=== PATIENT | female | born 1980 | race African-American/Black ===

== ENCOUNTER 2016-05-30 22:05 | Inpatient (IN) | payer OTHER ==
[~2016-05-30] VITALS: Ht 172.7 cm; Wt 76.6 kg
[~2016-05-30 22:05] MED LIST: Z.0.NO CURRENT MEDS
[2016-05-30 22:06] VITALS: BP 122/74; PULSE 120; RESP 16; TEMP 99; O2SAT 95
[2016-05-30] MEDS ORDERED: SODIUM CHLORIDE 0.9% FLUSH 5 ML FLUSH IVF PRN (22:45)
[2016-05-30] MEDS ORDERED: methylPREDNISolone SOD SUCC 125 MG/2 ML VIAL IVP ONE (22:45)
[2016-05-30] MEDS: RESP: ALBUTEROL 2.5 MG/3 ML NEB (SCH) INH ×2 (22:55→22:56)
[2016-05-30 23:21] LABS: AUTOMATED NEUTROPHIL # 1.9 TH/MM3 (1.8-7.7); BASOPHIL % 0.4 % (0.0-2.0); EOSINOPHIL % 0.6 % (0.0-4.0); HEMATOCRIT 34.8 % (35.0-46.0); HEMO FLAGS DIFF FINAL; LYMPH % 27.2 % (9.0-44.0); LYMPHOCYTE # 1.1 TH/MM3 (1.0-4.8); MEAN CELL VOLUME 78.6 FL (80.0-100.0); MEAN CORPUSCULAR HGB CONC 33.1 % (32.0-36.0); MONO % 23.6 % (0.0-8.0); NEUT % 48.2 % (16.0-70.0); PLATELET COUNT 128 TH/MM3 (150-450); RED BLOOD COUNT 4.42 MIL/MM3 (4.00-5.30); RED CELL DISTRIBUTION WIDTH 14.3 % (11.6-17.2)
--- NOTE | 2016-05-30 23:32 | RADRPT ---
EXAM DATE/TIME: 05/30/2016 22:39 [facility] COMPARISON: No previous studies available for comparison. INDICATIONS : Shortness of breath, and flu like symptoms. MEDICAL HISTORY : None. SURGICAL HISTORY : None. ENCOUNTER: Initial ACUITY: 1 day PAIN SCORE: 10/10 LOCATION: Bilateral chest FINDINGS: The cardiac silhouette is enlarged in transverse diameter. There is prominence of the central pulmona ry vasculature with indistinct vascular margins compatible with vascular congestion but no evidence o f overt failure. There is no evidence of pneumonia. CONCLUSION: 1. Cardiomegaly and findings of vascular congestion without overt failure. Aba Treviño MD on May 30, 2016 at 23:29 Board Certified Radiologist. This report was verified electronically.
--- NOTE | 2016-05-30 23:32 | PD ---
HPI Chief Complaint: Cold / Flu Symptoms Time Seen by Provider: 22:29 Travel History International Travel<30 days: No Contact w/Intl Traveler<30days: No Traveled to known affect area: No History of Present Illness HPI The patient is 35 years old. She has had cough and shortness of breath for about 3 days or so. In addition she's had nausea vomiting diarrhea. She reports fever and chills. Myalgias are also reported. 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 Dyspnea on exertion. He reported. Patient was started on azithromycin about 3 days ago. No improvement has been observed. Mother notes that at home albuterol treatments helped. The patient has no pulmonary disease however mother does have a nebulizer for her own use. Pt denies CP. PFSH Past Medical History Cancer: No Diabetes: No Diminished Hearing: No Glaucoma: No Hepatitis: No Hiatal Hernia: No Hypertension: No Immunizations Current: No Thyroid Disease: No ?: Unknown LMP: 05/20/2016 : 1 Para: 0 Miscarriage: 1 Past Surgical History Surgical History: No Previous Surgery Abdominal Surgery: No Cardiac Surgery: No Ear Surgery: No Endocrine Surgery: No Eye Surgery: No Genitourinary Surgery: No Gynecologic Surgery: Yes (D&C 2008 S/P MISCARRIAGE) Oral Surgery: No Pacemaker: No Thoracic Surgery: No Social History Alcohol Use: No Tobacco Use: No Substance Use: No Allergies-Medications (Allergen,Severity, Reaction): Coded Allergies: Penicillin (Verified Allergy, Mild, UNKNOWN, 05/30/16) Reported Meds & Prescriptions Reported Meds & Active Scripts Active Reported No Current Meds (Miscellaneous Medication) Misc Review of Systems Except as stated in HPI: all other systems reviewed are Neg Physical Exam Narrative GENERAL: 35-year-old well-developed well-nourished SKIN: Warm and dry. HEAD: Atraumatic. Normocephalic. EYES: Pupils equal and round. No scleral icterus. No injection or drainage. ENT: No nasal bleeding or discharge. Mucous membranes pink and moist. NECK: Trachea midline. No JVD. CARDIOVASCULAR: Tachycardia. Regular. RESPIRATORY no accessory muscle use. Occasional coarse breath sounds. GASTROINTESTINAL: Abdomen soft, non-tender, nondistended. Hepatic and splenic margins not palpable. MUSCULOSKELETAL: No obvious deformities. No clubbing. No cyanosis. No edema. NEUROLOGICAL: Awake and alert. No obvious cranial nerve deficits. Motor grossly within normal limits. Normal speech. PSYCHIATRIC: Appropriate mood and affect; insight and judgment normal. Data Data Last Documented VS Vital Signs Date Time Temp Pulse Resp B/P Pulse Ox O2 Delivery O2 Flow Rate FiO2 05/30/16 22:06 99.0 120 16 122/74 95 Vital signs reviewed Orders Complete Blood Count With Diff (05/30/16 22:37) Basic Metabolic Panel (Bmp) (05/30/16 22:37) Influenzae A/B Antigen (05/30/16 22:37) Iv Access Insert/Monitor (05/30/16 22:37) Ecg Monitoring (05/30/16 22:37) Oximetry (05/30/16 22:37) Oxygen Administration (05/30/16 22:37) Chest, Single Ap (05/30/16 22:37) Sodium Chloride 0.9% Flush (Ns Flush) (05/30/16 22:45) Methylprednisolone So Succ Inj (Solumedr (05/30/16 22:45) Albuterol Neb (Albuterol Neb) (05/30/16 22:45) Electrocardiogram (05/30/16 23:44) B-Type Natriuretic Peptide (05/30/16 23:44) Ckmb (Isoenzyme) Profile (05/30/16 23:44) D-Dimer (05/30/16 23:44) Troponin I (05/30/16 23:44) Ct Thorax/ Chest W Iv Contrast (05/30/16 ) Ed Urine Pregnancytest Poc (05/30/16 23:44) Westergren Sedimentation Rate (05/30/16 23:44) Hepatic Functional Panel (05/30/16 23:46) Iohexol 350 Inj (Omnipaque 350 Inj) (05/31/16 00:32) Furosemide Inj (Lasix Inj) (05/31/16 01:15) Ceftriaxone Inj (Rocephin Inj) (05/31/16 01:15) Azithromycin (Zithromax) (05/31/16 01:15) Blood Culture (05/31/16 01:09) Place In Observation (05/31/16 ) Vital Signs (Adult) Q4H (05/31/16 01:25) Activity Oob With Assistance (05/31/16 01:25) Applications Trainer / Telemetry .CONTINUOUS (05/31/16 01:25) Diet Heart Healthy (05/31/16 Breakfast) Sodium Chloride 0.9% Flush (Ns Flush) (05/31/16 01:30) Sodium Chloride 0.9% Flush (Ns Flush) (05/31/16 09:00) Basic Metabolic Panel (Bmp) (06/01/16 06:00) Complete Blood Count With Diff (06/01/16 06:00) Creatine Kinase (Cpk) (06/01/16 00:00) Creatine Kinase (Cpk) (06/01/16 06:00) Troponin I (06/01/16 00:00) Troponin I (06/01/16 06:00) Electrocardiogram (06/01/16 00:00) Electrocardiogram (06/01/16 06:00) Case Management Consult (05/31/16 01:25) Naloxone Inj (Narcan Inj) (05/31/16 01:30) Echo 2d Comp W/Dopp(Routine) (05/31/16 ) Admit Order (Ed Use Only) (05/31/16 01:29) Furosemide Inj (Lasix Inj) (05/31/16 01:30) Labs Laboratory Tests Test 05/30/16 05/30/16 05/30/16 23:08 23:50 23:59 White Blood Count 4.0 TH/MM3 Red Blood Count 4.42 MIL/MM3 Hemoglobin 11.5 GM/DL Hematocrit 34.8 % Mean Corpuscular Volume 78.6 FL Mean Corpuscular Hemoglobin 26.0 PG Mean Corpuscular Hemoglobin 33.1 % Concent Red Cell Distribution Width 14.3 % Platelet Count 128 TH/MM3 Mean Platelet Volume 8.9 FL Neutrophils (%) (Auto) 48.2 % Lymphocytes (%) (Auto) 27.2 % Monocytes (%) (Auto) 23.6 % Eosinophils (%) (Auto) 0.6 % Basophils (%) (Auto) 0.4 % Neutrophils # (Auto) 1.9 TH/MM3 Lymphocytes # (Auto) 1.1 TH/MM3 Monocytes # (Auto) 0.9 TH/MM3 Eosinophils # (Auto) 0.0 TH/MM3 Basophils # (Auto) 0.0 TH/MM3 CBC Comment DIFF FINAL Differential Comment Sodium Level 137 MEQ/L Potassium Level 3.7 MEQ/L Chloride Level 104 MEQ/L Carbon Dioxide Level 23.9 MEQ/L Anion Gap 9 MEQ/L Blood Urea Nitrogen 7 MG/DL Creatinine 0.58 MG/DL Estimat Glomerular Filtration 142 ML/MIN Rate Random Glucose 119 MG/DL Calcium Level 8.1 MG/DL D-Dimer Quantitative (PE/DVT) 0.98 MG/L FEU Erythrocyte Sedimentation Rate 18 mm/hr Total Bilirubin 0.8 MG/DL Direct Bilirubin 0.4 MG/DL Indirect Bilirubin 0.4 MG/DL Aspartate Amino Transf 32 U/L (AST/SGOT) Alanine Aminotransferase 33 U/L (ALT/SGPT) Alkaline Phosphatase 218 U/L Total Creatine Kinase 55 U/L Troponin I 0.02 NG/ML B-Type Natriuretic Peptide 797 PG/ML Total Protein 6.6 GM/DL Albumin 2.8 GM/DL [facility] Medical Decision Making Medical Screen Exam Complete: Yes Emergency Medical Condition: Yes Medical Record Reviewed: Yes Differential Diagnosis Pneumonia, influenza, electrolyte imbalance Narrative Course CBC & BMP Diagram 05/30/16 23:08 ESR 18 Troponin 0.02 BNP 797 EKG reveals sinus tachycardia with a rate of 129, left axis deviation Last 24 hours Impressions Chest X-Ray 05/30/162236 Signed Impressions: Service Date/Time: Monday, May 30, 2016 22:39 - CONCLUSION: 1. Cardiomegaly and findings of vascular congestion without overt failure. Aba Treviño MD CT shows pulmonary edema and/or pneumonia Patient received Lasix. Rocephin and azithromycin started. Blood cultures drawn. Admission for workup of heart failure and 35-year-old. Discussed with Dr. Bean. Diagnosis Primary Impression: CHF (congestive heart failure) Qualified Code: I50.9 - Congestive heart failure, unspecified congestive heart failure chronicity, unspecified congestive heart failure type Additional Impressions: Pulmonary edema Qualified Code: J81.0 - Acute pulmonary edema Pneumonia Qualified Code: J18.9 - Pneumonia due to infectious organism, unspecified laterality, unspecified part of lung Admitting Information Admitting Physician Requests: Admit Derik Godinez MD May 30, 2016 23:32
[2016-05-30 23:40] LABS: BICARBONATE 23.9 MEQ/L (21.0-32.0); POTASSIUM 3.7 MEQ/L (3.5-5.1)
[2016-05-31] MEDS ORDERED: IOHEXOL 350 MG/ML 10 ML VIAL (for RAD DIAG) IV ONE (00:32)
[2016-05-31 00:48] LABS: INDIRECT BILIRUBIN 0.4 MG/DL (0.0-0.8); TOTAL BILIRUBIN ADULT 0.8 MG/DL (0.2-1.0)
--- NOTE | 2016-05-31 01:02 | RADRPT ---
EXAM DATE/TIME: 05/31/2016 00:30 [facility] COMPARISON: No previous studies available for comparison. INDICATIONS : Short of breath. IV CONTRAST: 70 cc Omnipaque 350 (iohexol) IV RADIATION DOSE: 4.50 CTDIvol (mGy) MEDICAL HISTORY : None SURGICAL HISTORY : None. ENCOUNTER: Initial ACUITY: 1 day PAIN SCALE: 0/10 LOCATION: chest TECHNIQUE: Volumetric scanning of the chest was performed. Using automated exposure control and adjustment of the mA and/or kV according to patient size, radiation dose was kept as low as reasonab ly achievable to obtain optimal diagnostic quality images. FINDINGS: There is patchy alveolar disease bilaterally compatible with edema or pneumonia. This is much more pr ominent on the right than on the left. No pleural effusions are identified. No pulmonary nodules are identified. Examination of the mediastinum demonstrates no abnormally enlarged lymph nodes by CT criteria. No axi llary or hilar abnormalities are identified. Coronary artery calcifications are not present. The visu alized upper abdomen demonstrates no abnormality. The cardiac silhouette is enlarged in transverse di ameter. CONCLUSION: Diffuse alveolar disease on the right characteristics of edema or pneumonia Aba Treviño MD on May 31, 2016 at 0:58 Board Certified Radiologist. This report was verified electronically.
[2016-05-31] MEDS ORDERED: cefTRIAXone INJ 1,000 MG in SODIUM CHLORIDE 0.9% INJ 100 ML IV ONE (01:15)
[2016-05-31] MEDS ORDERED: AZITHROMYCIN 250 MG TAB PO ONE (01:15)
[2016-05-31] MEDS ORDERED: FUROSEMIDE 20 MG/2 ML VIAL IV PUSH ONE ×2 (01:15→01:30)
[2016-05-31] MEDS ORDERED: SODIUM CHLORIDE 0.9% FLUSH 5 ML FLUSH FLUSH PRN (01:30)
[2016-05-31] MEDS ORDERED: NALOXONE HCL 0.4 MG/ML AMP IV PRN (01:30)
[2016-05-31 02:57] VITALS: BP 138/77; PULSE 114; RESP 18; O2SAT 97
--- NOTE | 2016-05-31 03:57 | HHI.HP ---
HPI Service [facility] Primary Care Physician Unknown Admission Diagnosis CHF, Pulm Edema, PNA Diagnoses: Chief Complaint: cough, N/V/D Travel History International Travel<30 Days: No Contact w/Intl Traveler <30 Da: No Traveled to Known Affected Are: No History of Present Illness This is a pleasant 35-year-old Malian female whose with a past medical history of obesity. Patient denies prior medical history. Patient's mother who is at bedside reports concerns of sleep apnea as they used to live in the same house and she reports that she would notice her daughter having rapid breathing followed by periods of not breathing throughout the night. Patient reports approximally 2 weeks ago she had a cold she thought was possibly the flu was treated and outpatient center and given cough suppressant which did not seem to help. Patient reports she was seen at urgent care center was given Z-Dave and told to take over the counter Robitussin again this is not help therefore she proceeded to the emergency department for further evaluation and treatment. Patient reports that since Wednesday she has had nausea vomiting and frequent diarrhea. Patient reports that she has more than 5-6 loose bowel movements per day she reports the bowel movements are orange/green in color she has not noticed any abnormal odor. Patient reports that for the past 2 weeks she's had cough productive of green/yellow phlegm, which seems to be getting worse. Thye cough is associated with midsternal chest tightness/pain. Chest pain does not seem to be related to exertion and there is no radiation of the pain. Patient denies shortness of breath. Patient reports thtat she has lost about 90 lbs over the last 1 year. This weight loss was intentional with exercise and healthy eating. Review of Systems Except as stated in HPI: all other systems reviewed are Neg Past Family Social History Past Medical History denies prior medical history Past Surgical History D&C after miscarriage Reported Medications Currently on day three of Z dave Allergies: Coded Allergies: Penicillin (Verified Allergy, Mild, UNKNOWN, 05/30/16) Active Ordered Medications Current Medications Medications (Trade) Dose Ordered Sig/Katie Route Start Time Stop Time Status Last Admin (NS Flush) 2 ml UNSCH PRN FLUSH 05/31/16 01:30 (NS Flush) 2 ml BID FLUSH 05/31/16 09:00 (Narcan Inj) 0.4 mg UNSCH PRN IV 05/31/16 01:30 Family History Mother positive for CAD first dx at 50 Social History works as a high school social science teacher denies ETOH use, tobacco use or illicit drug use Physical Exam Vital Signs Vital Signs Date Time Temp Pulse Resp B/P Pulse Ox O2 Delivery O2 Flow Rate FiO2 05/31/16 02:57 114 18 138/77 97 Room Air 05/30/16 22:06 99.0 120 16 122/74 95 Physical Exam GENERAL: This is a well-nourished, well-developed patient, tachycardic at rest SKIN: No rashes, ecchymoses or lesions. Cool and dry. HEAD: Atraumatic. Normocephalic. No temporal or scalp tenderness. EYES:Extraocular motions intact. No scleral icterus. No injection or drainage. CARDIOVASCULAR: Regular rate and rhythm without murmurs, gallops, or rubs. RESPIRATORY: Clear to auscultation. Breath sounds equal bilaterally. No wheezes , rales, or rhonchi. GASTROINTESTINAL: Abdomen soft, non-tender, nondistended. No hepato-splenomegaly , or palpable masses. No guarding. MUSCULOSKELETAL: Extremities without clubbing, cyanosis, or edema. No joint tenderness, effusion, or edema noted. No calf tenderness. Negative Homans sign bilaterally. NEUROLOGICAL: Awake and alert. No focal deficits noted. Motor and sensory grossly within normal limits. Five out of 5 muscle strength in all muscle groups. Normal speech. Laboratory Laboratory Tests Test 05/30/16 05/30/16 05/30/16 23:08 23:50 23:59 White Blood Count 4.0 Red Blood Count 4.42 Hemoglobin 11.5 Hematocrit 34.8 Mean Corpuscular Volume 78.6 Mean Corpuscular Hemoglobin 26.0 Mean Corpuscular Hemoglobin 33.1 Concent Red Cell Distribution Width 14.3 Platelet Count 128 Mean Platelet Volume 8.9 Neutrophils (%) (Auto) 48.2 Lymphocytes (%) (Auto) 27.2 Monocytes (%) (Auto) 23.6 Eosinophils (%) (Auto) 0.6 Basophils (%) (Auto) 0.4 Neutrophils # (Auto) 1.9 Lymphocytes # (Auto) 1.1 Monocytes # (Auto) 0.9 Eosinophils # (Auto) 0.0 Basophils # (Auto) 0.0 CBC Comment DIFF FINAL Differential Comment Sodium Level 137 Potassium Level 3.7 Chloride Level 104 Carbon Dioxide Level 23.9 Anion Gap 9 Blood Urea Nitrogen 7 Creatinine 0.58 Estimat Glomerular Filtration 142 Rate Random Glucose 119 Calcium Level 8.1 D-Dimer Quantitative (PE/DVT) 0.98 Erythrocyte Sedimentation Rate 18 Total Bilirubin 0.8 Direct Bilirubin 0.4 Indirect Bilirubin 0.4 Aspartate Amino Transf 32 (AST/SGOT) Alanine Aminotransferase 33 (ALT/SGPT) Alkaline Phosphatase 218 Total Creatine Kinase 55 Troponin I 0.02 B-Type Natriuretic Peptide 797 Total Protein 6.6 Albumin 2.8 Date/Time Procedure Status Source Growth 05/31/16 01:55 Aerobic Blood Culture Received Blood Peripheral Pending 05/31/16 01:55 Anaerobic Blood Culture Received Blood Peripheral Pending 05/30/16 23:08 Influenza Types A,B Antigen (LORETO) - Final Complete Nasal Aspirate NEGATIVE FOR FLU A AND B ANTIGEN.... Result Diagram: 05/30/16230705/30/162307 Imaging Last Impressions Chest X-Ray 05/30/162236 Signed Impressions: Service Date/Time: Monday, May 30, 2016 22:39 - CONCLUSION: 1. Cardiomegaly and findings of vascular congestion without overt failure. Aba Treviño MD Assessment and Plan Assessment and Plan This is a pleasant 35-year-old Malian female whose with a past medical history of obesity. Patient denies prior medical history. 2 weeks of cough now productive of yellow/green phlegm, N/V/D New onset CHF Cardiomegaly CXR reviewed by myself as well as Dr. Bean reveals: Cardiomegaly and findings of vascular congestion without overt failure BNP 797 Patient received Lasix 20 mg IV given in emergency department Lasix 20 mg IV daily with potassium 10 meq Echocardiogram ordered and pending Serial troponin and serial EKGs Cardiology consultation Pneumonia- failed outpatient therapy Productive cough Patient received Rocephin and azithromycin in emergency department Patient was on azithromycin by mouth as an outpatient with no improvement Will start Levaquin 750 mg IV daily Methylprednisone 125 mg given IV 1 in emergency department DuoNeb scheduled and when necessary CT of the chest reviewed by myself as well as Dr. Bean reveals diffuse alveolar disease on the right consistent with edema or pneumonia D dimmer elevated at 0.[address] with IV contrast 05/30/2016 unable to do CTA to rule out PE at this time clinical suspicion of PE is low- patient is ambulatory and there is no s/s DVT- will hold off on VQ scan at this time If PE becomes more of a concern possible CTA to rule out PE at a later date Possible sleep apnea Consult pulmonology Questionable history of thyroid dx check TSH and free T4 DVT prophylaxis with Lovenox Case discussed with the ER provider and RN as well as patient and mother who is at bedside Written by Joanna Astorga, acting as scribe for Dr. Bean on 05/31/16 at 04: 11. The documentation accurately reflects the work performed [id number] by me on at [id number] Joanna Astorga May 31, 2016 03:57 Rose Bean MD May 31, 2016 07:06
[2016-05-31 04:10] VITALS: BP 136/85; PULSE 107; RESP 16; TEMP 97.5; O2SAT 99
[2016-05-31] MEDS ORDERED: RESP: ALBUTEROL 2.5 MG/IPRATROPIUM 0.5 MG NEB (PRN) NEB (04:15)
[2016-05-31] MEDS: ENOXAPARIN SODIUM 40 MG/0.4 ML SYRINGE SQ SCH (05:41)
[2016-05-31] MEDS: LEVOFLOXACIN 750 MG PREMIX INJ 150 ML IV SCH (05:41)
[2016-05-31 07:20] LABS: FREE T4 GREATER THAN 8.00 NG/DL (0.76-1.46)
[2016-05-31] MEDS: RESP: ALBUTEROL 2.5 MG/IPRATROPIUM 0.5 MG NEB (SCH) NEB ×3 (07:40→20:40)
[2016-05-31 07:43] VITALS: BP 119/73; PULSE 108; RESP 16; TEMP 97.2; O2SAT 97
[2016-05-31] MEDS: POTASSIUM CHLORIDE 10 MEQ CAP PO SCH (07:57)
[2016-05-31] MEDS ORDERED: FUROSEMIDE 20 MG/2 ML VIAL IV PUSH SCH (09:00)
[2016-05-31] MEDS: SODIUM CHLORIDE 0.9% FLUSH 5 ML FLUSH FLUSH SCH ×2 (09:00→21:12)
[2016-05-31 11:24] VITALS: BP 124/73; PULSE 109; RESP 16; TEMP 97.7; O2SAT 99
--- NOTE | 2016-05-31 14:27 | EKG ---
Date Performed: 05/30/2016 Time Performed: 23:58:03 PTAGE: 35 years EKG: SINUS TACHYCARDIA BORDERLINE LEFT AXIS DEVIATION NONSPECIFIC ST & T-WAVE ABNORMALITY ABNORM AL RHYTHM ECG NO PREVIOUS TRACING DOCTOR: Farhan Murray Interpretating Date/Time 05/31/2016 14:48:52
[2016-05-31 15:54] VITALS: BP 130/74; PULSE 109; RESP 16; TEMP 98.2; O2SAT 98
--- NOTE | 2016-05-31 16:01 | MB ---
cc: JONI BOX M.D. DATE OF CONSULTATION: 05/31/2016. REASON FOR CONSULTATION: Possible heart failure. HISTORY OF PRESENT ILLNESS: Mrs. Poole is a 35-year-old -[place] female with past history of morbid obesity. She has lost 90 pounds in the past year by exercise and eating better. She was having a cough around three weeks ago. The primary doctor gave her some cough medication with codeine. She is improved. She continued the same cough and went to the urgent care. They gave her an antibiotic and back again with coughing and it was getting worse. The mother decided to bring her to the emergency room where she was evaluated and subsequently admitted. Since hospitalization, she has continued to improve. I was consulted for further evaluation. There was suspicion also of heart failure. The chart was reviewed. The patient was evaluated. ALLERGIES: PENICILLIN. SOCIAL HISTORY: Negative for smoking and drinking. FAMILY HISTORY: The mother had coronary bypass grafting in the mid to late 50s. MEDICATIONS AT HOME: She was basically on a Z-Dave. MEDICATIONS IN THE HOSPITAL: Currently in the hospital she is on: 1. Rocephin. 2. Levaquin. 3. Albuterol inhaler. 4. Zithromax. 5. Lasix IV was given. 6. Methylprednisone was also given. REVIEW OF SYSTEMS: She refers feeling better. No chest pain or chest discomfort. No vomiting. No fever. PHYSICAL EXAMINATION: GENERAL: Alert, fully oriented. VITAL SIGNS: Blood pressure 124/73, pulse 109, respiratory rate 20. LUNGS: Ventilated. CARDIOVASCULAR: S1 and S2. No gallop. No murmur. ABDOMEN: Abdomen soft, no mass. EXTREMITIES: No edema. EKGS: Electrocardiogram indicates sinus tachycardia, rate was around 120 beats per minute to 230 beats per minute. No significant S-T changes. LABORATORY DATA: Hemoglobin 11.5, white blood cells 4.0. Potassium 3.7, creatinine is 0.58. BNP around 797. TSH is 0.05. ASSESSMENT AND RECOMMENDATIONS: Mrs. Poole continues to improve. She is on an antibiotic. There was no previous history of heart failure. Most of her shortness of breath may be most likely due to pneumonia. I discussed the case extensively with her. A 2-D echo was requested but is not available yet. At this point, I am going to discontinue the IV Lasix. I am going to wait for the echocardiogram report. Also, her TSH is very low and the free T4 is high. She may need an endocrinology evaluation. I will monitor her during her hospitalization. MD PAYTON Quarles/LORY /3:33 PM /3:53 PM
[2016-05-31 20:45] VITALS: BP 117/73; PULSE 105; RESP 16; TEMP 97.8; O2SAT 99
[2016-05-31] MEDS: METHIMAZOLE 5 MG TAB PO SCH (21:12)
[2016-06-01 00:50] VITALS: BP 112/68; PULSE 112; RESP 20; TEMP 96.6; O2SAT 99
[2016-06-01 01:27] LABS: CREATINE KINASE 39 U/L (26-192)
[2016-06-01 04:34] VITALS: BP 106/69; PULSE 108; RESP 20; TEMP 96.2; O2SAT 100
[2016-06-01] MEDS: ENOXAPARIN SODIUM 40 MG/0.4 ML SYRINGE SQ SCH (05:34)
[2016-06-01] MEDS: LEVOFLOXACIN 750 MG PREMIX INJ 150 ML IV SCH (05:34)
[2016-06-01 07:18] LABS: AUTOMATED NEUTROPHIL # 1.5 TH/MM3 (1.8-7.7); BASOPHIL % 0.3 % (0.0-2.0); EOSINOPHIL % 0.1 % (0.0-4.0); HEMATOCRIT 33.6 % (35.0-46.0); HEMO FLAGS DIFF FINAL; LYMPH % 49.3 % (9.0-44.0); LYMPHOCYTE # 2.3 TH/MM3 (1.0-4.8); MEAN CELL VOLUME 78.7 FL (80.0-100.0); MEAN CORPUSCULAR HEMOGLOBIN 26.2 PG (27.0-34.0); MEAN CORPUSCULAR HGB CONC 33.3 % (32.0-36.0); MONO % 17.9 % (0.0-8.0); NEUT % 32.4 % (16.0-70.0); PLATELET COUNT 129 TH/MM3 (150-450); RED BLOOD COUNT 4.27 MIL/MM3 (4.00-5.30); RED CELL DISTRIBUTION WIDTH 14.3 % (11.6-17.2); WHITE BLOOD COUNT 4.6 TH/MM3 (4.0-11.0)
[2016-06-01 07:42] LABS: ANION GAP 8 MEQ/L (5-15); BLOOD UREA NITROGEN 13 MG/DL (7-18); CHLORIDE 107 MEQ/L (98-107); GLOMERULAR FILTRATION RATE 168 ML/MIN (>89); POTASSIUM 3.7 MEQ/L (3.5-5.1); SODIUM (NA) 141 MEQ/L (136-145)
[2016-06-01 07:49] LABS: CREATINE KINASE 29 U/L (26-192)
[2016-06-01 08:00] VITALS: BP 100/71; PULSE 113; RESP 19; TEMP 96.5; O2SAT 98
[2016-06-01] MEDS: RESP: ALBUTEROL 2.5 MG/IPRATROPIUM 0.5 MG NEB (SCH) NEB ×3 (08:08→20:32)
[2016-06-01] MEDS: POTASSIUM CHLORIDE 10 MEQ CAP PO SCH (09:51)
[2016-06-01] MEDS: METHIMAZOLE 5 MG TAB PO SCH ×2 (09:52→21:00)
[2016-06-01] MEDS ORDERED: INFLUENZA VIRUS VACCINE (QUADRIVALENT) 0.5 ML SYR IM ONE (10:00)
[2016-06-01] MEDS: SODIUM CHLORIDE 0.9% FLUSH 5 ML FLUSH FLUSH SCH ×2 (10:04→21:00)
[2016-06-01 12:00] VITALS: BP 92/70; PULSE 111; RESP 18; TEMP 96.8; O2SAT 99
--- NOTE | 2016-06-01 14:18 | EKG ---
Date Performed: 06/01/2016 Time Performed: 05:27:38 PTAGE: 35 years EKG: Sinus tachycardia Leftward axis Possible left ventricular hypertrophy Lateral T wave change s are probably due to ventricular hypertrophy Low QRS voltages in precordial leads Abnormal ECG NO PREVIOUS TRACING DOCTOR: David Flores Interpretating Date/Time 06/01/2016 14:15:23
--- NOTE | 2016-06-01 14:23 | EKG ---
Date Performed: 05/31/2016 Time Performed: 23:51:36 PTAGE: 35 years EKG: Sinus tachycardia with frequent PVCs Leftward axis QRS changes V3/V4 may be due to LVH but cannot rule out anterior infarct Abnormal ECG NO PREVIOUS TRACING DOCTOR: David Flores Interpretating Date/Time 06/01/2016 14:19:01
--- NOTE | 2016-06-01 14:34 | HHI.PR ---
Subjective Remarks Patient in bed. Says she feels improved today. No palpitations, sob, n/v/d/c. Objective Vitals Vital Signs Date Time Temp Pulse Resp B/P Pulse Ox O2 Delivery O2 Flow Rate FiO2 06/01/16 12:00 96.8 111 18 92/70 99 06/01/16 08:00 96.5 113 19 100/71 98 06/01/16 04:34 96.2 108 20 106/69 100 06/01/16 00:50 96.6 112 20 112/68 99 05/31/16 20:45 97.8 105 16 117/73 99 05/31/16 15:54 98.2 109 16 130/74 98 I/O 05/31/16 05/31/16 05/31/16 06/01/16 06/01/16 06/01/16 07:00 15:00 23:00 07:00 15:00 23:00 Intake Total 240 ml 960 ml 240 ml Balance 240 ml 960 ml 240 ml Intake Oral 240 ml 960 ml 240 ml # Voids 2 4 1 1 # Bowel Movements 4 1 Result Diagram: 06/01/16 0617 06/01/16 0617 Imaging Last Impressions Chest X-Ray 05/30/167 Signed Impressions: Service Date/Time: Monday, May 30, 2016 22:39 - CONCLUSION: 1. Cardiomegaly and findings of vascular congestion without overt failure. Aba Treviño MD Chest CT 05/30/16 0000 Signed Impressions: Service Date/Time: Tuesday, May 31, 2016 00:30 - CONCLUSION: Diffuse alveolar disease on the right characteristics of edema or pneumonia Aba Treviño MD Objective Remarks GENERAL: This is a well-nourished, well-developed patient, tachycardic at rest SKIN: No rashes, ecchymoses or lesions. Cool and dry. HEAD: Atraumatic. Normocephalic. No temporal or scalp tenderness. EYES:Extraocular motions intact. No scleral icterus. No injection or drainage. CARDIOVASCULAR: Regular rate and rhythm without murmurs, gallops, or rubs. RESPIRATORY: Clear to auscultation. Breath sounds equal bilaterally. No wheezes , rales, or rhonchi. GASTROINTESTINAL: Abdomen soft, non-tender, nondistended. No hepato-splenomegaly , or palpable masses. No guarding. MUSCULOSKELETAL: Extremities without clubbing, cyanosis, or edema. No joint tenderness, effusion, or edema noted. No calf tenderness. Negative Homans sign bilaterally. NEUROLOGICAL: Awake and alert. No focal deficits noted. Motor and sensory grossly within normal limits. Five out of 5 muscle strength in all muscle groups. Normal speech. A/P Assessment and Plan This is a pleasant 35-year-old [place] female whose with a past medical history of obesity. Patient denies prior medical history. 2 weeks of cough now productive of yellow/green phlegm, N/V/D New onset CHF Cardiomegaly CXR reviewed by myself as well as Dr. Bean reveals: Cardiomegaly and findings of vascular congestion without overt failure. Repeat CXR improved. BNP 797 Patient received Lasix 20 mg IV given in emergency department Lasix 20 mg IV daily with potassium 10 meq Echocardiogram ordered and pending Serial troponin and serial EKGs Cardiology consultation Pneumonia- failed outpatient therapy Productive cough Patient received Rocephin and azithromycin in emergency department Patient was on azithromycin by mouth as an outpatient with no improvement Will start Levaquin 750 mg IV daily Methylprednisone 125 mg given IV 1 in emergency department DuoNeb scheduled and when necessary CT of the chest reviewed by myself as well as Dr. Bean reveals diffuse alveolar disease on the right consistent with edema or pneumonia D dimmer elevated at 0.[address] with IV contrast 05/30/2016 unable to do CTA to rule out PE at this time clinical suspicion of PE is low- patient is ambulatory and there is no s/s DVT- will hold off on VQ scan at this time If PE becomes more of a concern possible CTA to rule out PE at a later date Possible sleep apnea Consult pulmonology History of thyroid dx. check TSH is low and free T4 is elevated patient with hyperthyroidism. Start methimazole 5 mg po bid. Patient to follow up as OP with endocrinology DVT prophylaxis with Lovenox Amy Walter MD Jun 01, 2016 14:34
[2016-06-01 16:00] VITALS: BP 119/75; PULSE 120; RESP 19; TEMP 97; O2SAT 99
[2016-06-01 20:00] VITALS: BP 115/80; PULSE 116; RESP 16; TEMP 96.4; O2SAT 99
--- NOTE | 2016-06-01 23:01 | HHI.PR ---
Subjective Remarks Doing ok Objective Vital Signs Date Time Temp Pulse Resp B/P Pulse Ox O2 Delivery O2 Flow Rate FiO2 06/01/16 20:00 96.4 116 16 115/80 99 06/01/16 16:00 97.0 120 19 119/75 99 06/01/16 12:00 96.8 111 18 92/70 99 06/01/16 08:00 96.5 113 19 100/71 98 06/01/16 04:34 96.2 108 20 106/69 100 06/01/16 00:50 96.6 112 20 112/68 99 I/O 05/31/16 05/31/16 05/31/16 06/01/16 06/01/16 06/01/16 07:00 15:00 23:00 07:00 15:00 23:00 Intake Total 240 ml 960 ml 240 ml 840 ml Balance 240 ml 960 ml 240 ml 840 ml Intake Oral 240 ml 960 ml 240 ml 840 ml # Voids 2 4 1 1 4 # Bowel Movements 4 1 2 Result Diagram: 06/01/1661606/01/1617 Imaging Alert, oriented, pleasant Lungs: ventilated Heart: S1, S2 tachycardia Abdomen: soft, no mass Ext: no edema Last Impressions Chest X-Ray 05/30/167 Signed Impressions: Service Date/Time: Monday, May 30, 2016 22:39 - CONCLUSION: 1. Cardiomegaly and findings of vascular congestion without overt failure. Aba Treviño MD Chest CT 05/30/16 0000 Signed Impressions: Service Date/Time: Tuesday, May 31, 2016 00:30 - CONCLUSION: Diffuse alveolar disease on the right characteristics of edema or pneumonia Aba Treviño MD Current Medications Medications (Trade) Dose Ordered Sig/Katie Route Start Time Stop Time Status Last Admin (NS Flush) 2 ml UNSCH PRN FLUSH 05/31/16 01:30 (NS Flush) 2 ml BID FLUSH 05/31/16 09:00 06/01/16 21:00 Naloxone HCl 0.4 mg 0.4 mg UNSCH PRN IV 05/31/16 01:30 (Levaquin 750 Mg Premix Inj) 150 ml @ 100 mls/hr Q24H IV 05/31/16 06:00 06/01/16 05:34 (KCl) 10 meq DAILY PO 05/31/16 09:00 06/01/16 09:51 (Lovenox Inj) 40 mg Q24H SQ 05/31/16 05:00 06/01/16 05:34 (Tapazole) 5 mg Q12HR PO 05/31/16 21:00 06/01/16 21:00 Assessment and Plan Problem List: (1) CHF (congestive heart failure) Status: Acute Plan: Possible CHF. Echo report not available. Will continue with current management Meds will be reevaluated in AM (2) Pulmonary edema Status: Acute Plan: Resolved (3) Pneumonia Status: Acute Plan: On antibiotic Problem Qualifiers (1) CHF (congestive heart failure): Qualified Code: I50.9 - Congestive heart failure, unspecified congestive heart failure chronicity, unspecified congestive heart failure type (2) Pulmonary edema: Qualified Code: J81.0 - Acute pulmonary edema (3) Pneumonia: Qualified Code: J18.9 - Pneumonia due to infectious organism, unspecified laterality, unspecified part of lung Roya Nguyen MD Jun 01, 2016 23:01
[2016-06-02] VITALS (8 sets, daily range): BP systolic 98–110; BP diastolic 67–81; PULSE 94–113; RESP 16–22; TEMP 96.5–98.9; O2SAT 96–100
[2016-06-02] MEDS: ENOXAPARIN SODIUM 40 MG/0.4 ML SYRINGE SQ SCH (05:08)
[2016-06-02] MEDS: LEVOFLOXACIN 750 MG PREMIX INJ 150 ML IV SCH (05:08)
[2016-06-02] MEDS: METHIMAZOLE 5 MG TAB PO SCH ×2 (08:24→21:29)
[2016-06-02] MEDS: RESP: ALBUTEROL 2.5 MG/IPRATROPIUM 0.5 MG NEB (SCH) NEB ×3 (08:24→21:02)
[2016-06-02] MEDS: POTASSIUM CHLORIDE 10 MEQ CAP PO SCH (08:25)
[2016-06-02] MEDS: SODIUM CHLORIDE 0.9% FLUSH 5 ML FLUSH FLUSH SCH (08:27)
--- NOTE | 2016-06-02 13:33 | HHI.PR ---
Subjective Remarks Patient in nad. Says she feels much better today. No palpitations. No n/v/d/c. Objective Vitals Vital Signs Date Time Temp Pulse Resp B/P Pulse Ox O2 Delivery O2 Flow Rate FiO2 06/02/16 08:00 100 06/02/16 08:00 100 Room Air 06/02/16 08:00 97.6 100 16 103/69 100 06/02/16 04:00 Room Air 06/02/16 04:00 96.5 94 16 102/69 100 06/02/16 01:22 107 06/02/16 00:00 Room Air 06/02/16 00:00 96.5 113 17 98/81 96 06/01/16 20:00 96.4 116 16 115/80 99 06/01/16 20:00 116 06/01/16 20:00 Room Air 06/01/16 16:00 97.0 120 19 119/75 99 I/O 06/01/16 06/01/16 06/01/16 06/02/16 06/02/16 06/02/16 07:00 15:00 23:00 07:00 15:00 23:00 Intake Total 840 ml 240 ml Balance 840 ml 240 ml Intake Oral 840 ml 240 ml # Voids 1 4 1 # Bowel Movements 1 2 0 Result Diagram: 06/01/1661606/01/16616 Imaging Last Impressions Chest X-Ray 05/30/162236 Signed Impressions: Service Date/Time: Monday, May 30, 2016 22:39 - CONCLUSION: 1. Cardiomegaly and findings of vascular congestion without overt failure. Aba Treviño MD Chest CT 05/30/16 0000 Signed Impressions: Service Date/Time: Tuesday, May 31, 2016 00:30 - CONCLUSION: Diffuse alveolar disease on the right characteristics of edema or pneumonia Aba Treviño MD Objective Remarks GENERAL: This is a well-nourished, well-developed patient, tachycardic at rest SKIN: No rashes, ecchymoses or lesions. Cool and dry. HEAD: Atraumatic. Normocephalic. No temporal or scalp tenderness. EYES:Extraocular motions intact. No scleral icterus. No injection or drainage. CARDIOVASCULAR: Regular rate and rhythm without murmurs, gallops, or rubs. RESPIRATORY: Clear to auscultation. Breath sounds equal bilaterally. No wheezes , rales, or rhonchi. GASTROINTESTINAL: Abdomen soft, non-tender, nondistended. No hepato-splenomegaly , or palpable masses. No guarding. MUSCULOSKELETAL: Extremities without clubbing, cyanosis, or edema. No joint tenderness, effusion, or edema noted. No calf tenderness. Negative Homans sign bilaterally. NEUROLOGICAL: Awake and alert. No focal deficits noted. Motor and sensory grossly within normal limits. Five out of 5 muscle strength in all muscle groups. Normal speech. A/P Assessment and Plan This is a pleasant 35-year-old [place] female whose with a past medical history of obesity. Patient denies prior medical history. 2 weeks of cough now productive of yellow/green phlegm, N/V/D New onset CHF Cardiomegaly CXR reviewed by myself as well as Dr. Bean reveals: Cardiomegaly and findings of vascular congestion without overt failure. Repeat CXR improved. BNP 797 Patient received Lasix 20 mg IV given in emergency department Lasix 20 mg IV daily with potassium 10 meq Echocardiogram ordered and pending Serial troponin negative, serial EKGs no ischemic changes Cardiology consultation, seen by Dr Nguyen appreciate recommendations. Pneumonia- failed outpatient therapy Productive cough Patient received Rocephin and azithromycin in emergency department Patient was on azithromycin by mouth as an outpatient with no improvement Will start Levaquin 750 mg IV daily Methylprednisone 125 mg given IV 1 in emergency department DuoNeb scheduled and when necessary CT of the chest reviewed by myself as well as Dr. Bean reveals diffuse alveolar disease on the right consistent with edema or pneumonia D dimmer elevated at 0.[address] with IV contrast 05/30/2016 unable to do CTA to rule out PE at this time clinical suspicion of PE is low- patient is ambulatory and there is no s/s DVT- will hold off on VQ scan at this time If PE becomes more of a concern possible CTA to rule out PE at a later date Possible sleep apnea Consult pulmonology History of thyroid dx. TSH is low and free T4 is elevated patient with hyperthyroidism. Start methimazole 5 mg po bid. Patient to follow up as OP with endocrinology. DVT prophylaxis with Lovenox Improving. DC when improved and cleared by consultants. Amy Walter MD Jun 02, 2016 13:33
--- NOTE | 2016-06-02 14:09 | RADRPT ---
EXAM DATE/TIME: 06/02/2016 13:44 [facility] COMPARISON: CT THORAX W CONTRAST, May 31, 2016, 0:30. CHEST SINGLE AP, May 30, 2016, 22:39. INDICATIONS : Shortness of Breath MEDICAL HISTORY : None. SURGICAL HISTORY : None. ENCOUNTER: Subsequent ACUITY: 4 - 6 days PAIN SCORE: 0/10 LOCATION: Bilateral chest FINDINGS: A single view of the chest demonstrates the lungs to be symmetrically aerated without evidence of mas s, infiltrate or effusion. Heart enlarged. The cardiomediastinal contours are unremarkable. Osseous structures are intact. CONCLUSION: Cardiomegaly with clear lungs. Javier Henderson MD on June 02, 2016 at 14:07 Board Certified Radiologist. This report was verified electronically.
--- NOTE | 2016-06-02 14:29 | EC ---
Study Study Date:06/01/2016 STUDY CONCLUSIONS SUMMARY - Left ventricle: The cavity size was severely dilated. Wall thickness was normal. Systolic function was severely reduced. The estimated ejection fraction was in the range of 25% to 30%. Diffuse hypokinesis. - Mitral valve: Severe regurgitation. - Tricuspid valve: Moderate-severe regurgitation. - Pulmonary arteries: PA peak pressure: 57mm Hg (S). If LV function is below 40, please consider prescribing an ACEI or ARB or document rationale for non-use. PROCEDURE DATA STUDY STATUS: Elective. Procedure: Transthoracic echocardiography. Image quality was good. Scanning was performed from the parasternal, apical, and subcostal acoustic windows. Study completion: The patient tolerated the procedure well. Transthoracic echocardiography. M-mode, complete 2D, complete spectral Doppler, and color Doppler. Patient status: Inpatient. CARDIAC ANATOMY LEFT VENTRICLE: The cavity size was severely dilated. Wall thickness was normal. Systolic function was severely reduced. The estimated ejection fraction was in the range of 25% to 30%. Diffuse hypokinesis. AORTIC VALVE: Trileaflet; normal thickness leaflets. Doppler: Transvalvular velocity was within the normal range. There was no stenosis. Trace to mild regurgitation. AORTA: Aortic root: The aortic root was normal in size. MITRAL VALVE: Structurally normal valve. Doppler: Transvalvular velocity was within the normal range. There was no evidence for stenosis. Severe regurgitation. LEFT ATRIUM: The atrium was normal in size. RIGHT VENTRICLE: The cavity size was normal. Wall thickness was normal. PULMONIC VALVE: Doppler: Transvalvular velocity was within the normal range. There was no evidence for stenosis. No regurgitation. TRICUSPID VALVE: Structurally normal valve. Doppler: Transvalvular velocity was within the normal range. Moderate-severe regurgitation. PULMONARY ARTERY: The main pulmonary artery was normal-sized. Systolic pressure was within the normal range. RIGHT ATRIUM: The atrium was normal in size. PERICARDIUM: There was no pericardial effusion. SYSTEMIC VEINS: Inferior vena cava: The vessel was normal in size. BASIC MEASUREMENTS ADULT Normal Left ventricle LV internal dimension, ED, chordal level, *57.7 mm 43-52 PLAX LV internal dimension, ES, chordal level, *48 mm 23-38 PLAX Fractional shortening, chordal level, PLAX *17 % >29 LV posterior wall thickness, ED 8.16 mm IVS/LVPW ratio, ED 1.19 <1.3 Ventricular septum Septal thickness, ED 9.71 mm Aortic valve Leaflet separation 21 mm 15-26 Left atrium Anterior-posterior dimension 42 mm Right ventricle RV internal dimension, ED, PLAX 28.7 mm 19-38 BASIC MEASUREMENTS ADULT Normal Aortic valve Leaflet separation 21 mm 15-26 Aorta Root diameter, ED 29 mm 20-37 Left atrium Anterior-posterior dimension, ES *50 mm 19-40 LA/aortic root ratio 1.72 DOPPLER MEASUREMENTS ADULT Normal Main pulmonary artery Pressure, S *57 mm Hg =30 Mitral valve Maximal regurgitant velocity 575 cm/s Tricuspid valve Regurgitant peak velocity 262 cm/s Peak RV-RA gradient, S 27 mm Hg Maximal regurgitant velocity 262 cm/s Systemic veins Estimated CVP 20 mm Hg Right ventricle RV pressure, S *57 mm Hg <30 LEGEND: Mean values are shown as u=mean value. Asterisk (*) reed values outside specified normal range. Prepared and signed by David Flores [id number]
[2016-06-02 15:11] LABS: POTASSIUM 3.8 MEQ/L (3.5-5.1)
[2016-06-02] MEDS ORDERED: IOHEXOL 350 MG/ML 100 ML BTL (for Cath Lab) OTHER ONE (15:25)
[2016-06-02 16:44] LABS: BETA HCG QUANT LESS THAN 1 MIU/ML (0-5)
[2016-06-02] MEDS ORDERED: VERAPAMIL HCL 5 MG/2 ML VIAL ONE (17:11)
[2016-06-02] MEDS ORDERED: NITROGLYCERIN INJ 5 ML ONE (17:11)
[2016-06-02] MEDS ORDERED: HEPARIN-NS/PF INJ 500 ML ONE (17:11)
[2016-06-02] MEDS ORDERED: MIDAZOLAM HCL 2 MG/2 ML VIAL ONE (17:11)
[2016-06-02] MEDS ORDERED: HEPARIN SODIUM - IV 10,000 UNITS/10 ML VIAL ONE (17:12)
[2016-06-02] MEDS ORDERED: MISC INFORMATION XX ONE (18:15)
[2016-06-02] MEDS ORDERED: SODIUM CHLORIDE 0.9% FLUSH 5 ML FLUSH IVF PRN (18:15)
[2016-06-02] MEDS ORDERED: ONDANSETRON HCL 4 MG/2 ML VIAL IV PRN (18:15)
[2016-06-02] MEDS ORDERED: ATROPINE SULFATE 1 MG/ML VIAL IV PRN (18:15)
--- NOTE | 2016-06-02 20:08 | MA ---
cc: CHERIE WILSON DATE 06/02/2016 DATE OF 1980 PROCEDURES PERFORMED 1. Left heart catheterization. 2. Selective right and left coronary angiography. 3. Left ventriculogram. APPROACH Right transradial. DESCRIPTION OF PROCEDURE Consent signed. The patient was brought into the cardiac garage laborer in a fasting state. Using 1% lidocaine for local anesthesia and micropuncture kit, a 6-Upper Sorbian sheath was inserted into the right radial artery. Antispasmodic cocktail given. Then selective right and left coronary angiography was performed with a JR-4 and a JL-3.5. Angiography was taken in multiple views. Then an angled pigtail was advanced over the wire into the left ventricle, followed by hemodynamic recordings, ventriculogram and pullback. The patient tolerated the procedure well without complications. ESTIMATED BLOOD LOSS Less than 30 cc. TOTAL CONTRAST Used 75 cc. The right radial access site was closed with a TR band. ANGIOGRAPHIC RESULTS Left ventricle. The left ventricular pressure was 99/12 with an LVEDP of 24. The aortic pressure was 96/71 with a mean of 83. The left ventricle looks big, has global hypokineses and estimated ejection fraction of 25-30%. CORONARIES 1. Left main is patent with nonobstructive coronary artery disease. 2. LAD is a transapical vessel with nonobstructive coronary artery disease and DIANE III flow. 3. Left circumflex is patent with DIANE III flow, giving off three small OMs which are also patent with DIANE III flow. 4. Ramus. Patent. It bifurcates. DIANE III flow; nonobstructive coronary artery disease. 5. The right coronary artery is a dominant vessel, has nonobstructive coronary artery disease. DIANE III flow. CONCLUSION 1. Nonischemic cardiomyopathy. 2. Severe LV systolic dysfunction. 3. Elevated LVEDP. 4. Moderate mitral regurgitation +3. RECOMMENDATIONS Continue aggressive medical management. Guidelines directed therapy for heart failure. The patient should be on beta-blockers, LUIS inhibitors as tolerated by blood pressure and diuretics for symptom relief. Case discussed with Dr. Nguyen. MD NIMA Guerrero/DYLON /6:00 PM /7:53 PM CAROLINE
--- NOTE | 2016-06-02 21:08 | MB ---
cc: CHERIE WILSON DATE OF CONSULTATION 06/02/16 1980 REASON FOR CONSULTATION New-onset left ventricular dysfunction/severe mitral regurgitation HISTORY OF PRESENT ILLNESS A 35-year-old female with past medical history significant for morbid obesity, has been losing weight intentionally with exercise and diet, who presented to the emergency department for evaluation of shortness of breath with minimal exertion and PND. She was found to be in heart failure. Echocardiogram done revealed severe LV systolic dysfunction with an EF of 30% as well as severe mitral regurgitation. Interventional cardiology has been consulted for left heart catheterization to assess coronary anatomy. Currently, the patient reports feeling better. She seems to be compensated from heart failure with IV diuresis that she has been getting in the hospital. She denies chest pain, shortness of breath, palpitations, syncope, lightheadedness, chest trauma, recent travels. She does report having a cold for the last two weeks as well as another viral illness in March. She also denies any recent pregnancies. PAST MEDICAL HISTORY 1. Morbid obesity. 2. Hyperthyroidism. ALLERGIES PENICILLIN SOCIAL HISTORY Denies smoking, drinking or illicit drug use. FAMILY HISTORY Mother had a coronary bypass in her 50s. MEDICATIONS Home medications Z-Dave. In the hospital reviewed. REVIEW OF SYSTEMS Negative except for what is mentioned in HPI. PHYSICAL EXAMINATION VITAL SIGNS: Temperature 97, respiratory rate 22, heart rate 103, blood pressure 110/70, O2 sat 100% on room air. GENERAL: She is awake, alert and oriented times three in no acute distress. NECK: No JVD or carotid bruits. HEART: Regular rate and rhythm. There is a 2/6 systolic ejection murmur more radiated to the axilla. LUNGS: Clear to auscultation bilaterally. No rhonchi, wheezes or rales. ABDOMEN: Soft, nontender, nondistended. Positive bowel sounds. EXTREMITIES: No cyanosis or edema. LABORATORY DATA CBC - hemoglobin 11, hematocrit 33, platelet count 129, Chemistries - sodium 138, potassium 3.8, BUN nine, creatinine 0.69, troponins less than 0.02 x3. BNP 797 and ACG less than one. TSH less than 0.005. Free T4 greater than eight. IMAGING STUDIES CT chest - Pulmonary edema. CARDIOLOGY STUDIES Echocardiogram - EF 25-30% with severe mitral regurgitation and moderate to severe tricuspid regurgitation. There is diffuse hypokinesis of the left ventricle and severe dilation. ASSESSMENT/PLAN A 35-year-old female with new onset heart failure found to have severe LV systolic dysfunction with severe MR and TR on echocardiography. Consulted for left heart cath/ischemic workup. Risks, benefits of left heart cath including but not limited to bleeding, infection, acute renal failure, stroke, IL, emergent bypass surgery, neurovascular trauma, stroke and have been explained to the patient. The patient understands risks and she is willing to proceed. RECOMMENDATIONS 1. Keep n.p.o. Scheduled left heart cath today. 2. Continue aggressive medical management for heart failure. Thank you for the opportunity to take part in the care of this patient. Further therapy to be determined. MD NIMA Guerrero/ /6:06 PM /8:55 PM CAROLINE
[2016-06-02] MEDS: SODIUM CHLORIDE 0.9% FLUSH 5 ML FLUSH IVF SCH (21:29)
[2016-06-03] VITALS: BP 102/63; PULSE 95; RESP 16; TEMP 96.4; O2SAT 97
[2016-06-03 03:43] VITALS: PULSE 84
[2016-06-03 04:00] VITALS: BP 97/65; PULSE 89; RESP 16; TEMP 97.6; O2SAT 95
[2016-06-03] MEDS: LEVOFLOXACIN 750 MG PREMIX INJ 150 ML IV SCH (05:27)
[2016-06-03] MEDS: POTASSIUM CHLORIDE 10 MEQ CAP PO SCH (07:37)
[2016-06-03] MEDS: METHIMAZOLE 5 MG TAB PO SCH (07:39)
[2016-06-03] MEDS: SODIUM CHLORIDE 0.9% FLUSH 5 ML FLUSH IVF SCH (07:40)
[2016-06-03 08:00] VITALS: BP 98/69; PULSE 99; RESP 18; TEMP 96; O2SAT 98
--- NOTE | 2016-06-03 08:47 | PD.CARD.PN ---
Subjective Subjective Remarks Feeling better Objective Medications Current Medications Medications (Trade) Dose Ordered Sig/Katie Route Start Time Stop Time Status Last Admin Naloxone HCl 0.4 mg 0.4 mg UNSCH PRN IV 05/31/16 01:30 (Levaquin 750 Mg Premix Inj) 150 ml @ 100 mls/hr Q24H IV 05/31/16 06:00 06/03/16 05:27 (KCl) 10 meq DAILY PO 05/31/16 09:00 06/03/16 07:37 (Tapazole) 5 mg Q12HR PO 05/31/16 21:00 06/03/16 07:39 (NS Flush) 2 ml BID IVF 06/02/16 21:00 06/03/16 07:40 (NS Flush) 2 ml UNSCH PRN IVF 06/02/16 18:15 (Atropine Inj) 0.5 mg UNSCH PRN IV 06/02/16 18:15 (Zofran Inj) 4 mg Q4H PRN IV 06/02/16 18:15 Vital Signs / I&O Vital Signs Date Time Temp Pulse Resp B/P Pulse Ox O2 Delivery O2 Flow Rate FiO2 06/03/16 08:00 96.0 99 18 98/69 98 06/03/16 04:00 97.6 89 16 97/65 95 06/03/16 03:43 84 06/03/16 00:00 96.4 95 16 102/63 97 06/02/16 21:44 Room Air 06/02/16 21:11 98.9 107 20 108/70 100 06/02/16 16:37 97.0 103 22 110/70 100 06/02/16 15:15 107 06/02/16 12:00 96.7 107 16 102/67 96 I/O 06/02/16 06/02/16 06/02/16 06/03/16 06/03/16 06/03/16 07:00 15:00 23:00 07:00 15:00 23:00 Intake Total 240 ml 480 ml 240 ml 240 ml 146 ml Balance 240 ml 480 ml 240 ml 240 ml 146 ml Intake Oral 240 ml 480 ml 240 ml 240 ml IV Total 146 ml # Voids 1 3 1 1 # Bowel Movements 0 0 0 0 1 Physical Exam GENERAL: Well-nourished, well-developed patient. SKIN: Warm and dry. HEAD: Normocephalic. EYES: No scleral icterus. No injection or drainage. NECK: Supple, trachea midline. No JVD or lymphadenopathy. CARDIOVASCULAR: Regular rate and rhythm with 2/6 LATHA and S3 gallop. RESPIRATORY: Breath sounds equal bilaterally. No accessory muscle use. GASTROINTESTINAL: Abdomen soft, non-tender, nondistended. EXTREMITIES: No cyanosis, or edema. NEUROLOGICAL: Awake, alert, and oriented x 3. Non-focal. Laboratory Laboratory Tests Test 06/02/16 14:23 Sodium Level 138 MEQ/L Potassium Level 3.8 MEQ/L Chloride Level 105 MEQ/L Carbon Dioxide Level 26.0 MEQ/L Anion Gap 7 MEQ/L Blood Urea Nitrogen 9 MG/DL Creatinine 0.62 MG/DL Estimat Glomerular Filtration 131 ML/MIN Rate Random Glucose 145 MG/DL Calcium Level 7.8 MG/DL B-Type Natriuretic Peptide 296 PG/ML Human Chorionic Gonadotropin, LESS THAN 1 Quant MIU/ML Imaging Last Impressions Chest X-Ray 06/02/16 0000 Signed Impressions: Service Date/Time: Thursday, June 02, 2016 13:44 - CONCLUSION: Cardiomegaly with clear lungs. Javier Henderson MD Chest CT 05/30/16 0000 Signed Impressions: Service Date/Time: Tuesday, May 31, 2016 00:30 - CONCLUSION: Diffuse alveolar disease on the right characteristics of edema or pneumonia Aba Treviño MD Assessment and Plan Problem List: (1) CHF (congestive heart failure) Assessment and Plan: EF 25% by cath, lying flat today on RA, no SOB. Coreg 3.125 mg BID and Entresto 24/26 mg BID initiated with BP hold parameters as pt. is low normotensive. (2) Pneumonia Assessment and Plan: Improving on Levaquin (3) Mitral regurgitation Assessment and Plan: 3+ MR per cath. Coreg and Entresto initiated per my d/w Dr. Nguyen. Assessment and Plan D/W pt., Dr. Nguyen. Problem Qualifiers (1) CHF (congestive heart failure): Qualified Code: I50.20 - Systolic congestive heart failure, unspecified congestive heart failure chronicity (2) Pneumonia: Qualified Code: J18.9 - Pneumonia due to infectious organism, unspecified laterality, unspecified part of lung Mere Pan Jun 03, 2016 08:47
[2016-06-03 09:00] VITALS: PULSE 99
[2016-06-03] MEDS ORDERED: SACUBITRIL/VALSARTAN 24 MG-26 MG TAB PO SCH (09:00)
[2016-06-03] MEDS ORDERED: CARVEDILOL 3.125 MG TAB PO SCH (09:00)
[2016-06-03] MEDS: RESP: ALBUTEROL 2.5 MG/IPRATROPIUM 0.5 MG NEB (SCH) NEB ×2 (09:04→12:21)
[2016-06-03] MEDS ORDERED: SACU1TAB PO (10:52)
[2016-06-03] MEDS ORDERED: ASPI81CH CHEW (10:52)
[2016-06-03] MEDS ORDERED: METH5 PO (10:52)
[2016-06-03] MEDS ORDERED: CARV3.125 PO (10:52)
[2016-06-03] MEDS ORDERED: SPIR25 PO (10:52)
--- NOTE | 2016-06-03 10:52 | HHI.DS ---
Discharge Summary Admission Date May 31, 2016 at 01:31 Discharge Date: Jun 03, 2016 Admitting Diagnosis CHF, Pulm Edema, PNA (1) CHF (congestive heart failure) ICD Code: I50.9 Diagnosis: Principal (2) Mitral regurgitation ICD Code: I34.0 Diagnosis: Principal (3) Pulmonary edema ICD Code: J81.1 Diagnosis: Principal (4) Pneumonia ICD Code: J18.9 Diagnosis: Secondary (5) Hyperthyroidism ICD Code: E05.90 Diagnosis: Principal Procedures 2d ECHO Brief History - From Admission This is a pleasant 35-year-old Ben[place] female whose with a past medical history of obesity. Patient denies prior medical history. Patient's mother who is at bedside reports concerns of sleep apnea as they used to live in the same house and she reports that she would notice her daughter having rapid breathing followed by periods of not breathing throughout the night. Patient reports approximally 2 weeks ago she had a cold she thought was possibly the flu was treated and outpatient center and given cough suppressant which did not seem to help. Patient reports she was seen at urgent care center was given Z-Dave and told to take over the counter Robitussin again this is not help therefore she proceeded to the emergency department for further evaluation and treatment. Patient reports that since Wednesday she has had nausea vomiting and frequent diarrhea. Patient reports that she has more than 5-6 loose bowel movements per day she reports the bowel movements are orange/green in color she has not noticed any abnormal odor. Patient reports that for the past 2 weeks she's had cough productive of green/yellow phlegm, which seems to be getting worse. Thye cough is associated with midsternal chest tightness/pain. Chest pain does not seem to be related to exertion and there is no radiation of the pain. Patient denies shortness of breath. Patient reports thtat she has lost about 90 lbs over the last 1 year. This weight loss was intentional with exercise and healthy eating. CBC/BMP: 06/01/16 0617 06/02/16 1423 Significant Findings Laboratory Tests Test 06/01/16 06/01/16 06/02/16 00:12 06:17 14:23 Troponin I LESS THAN 0.02 LESS THAN 0.02 NG/ML NG/ML (0.02-0.05) (0.02-0.05) Hemoglobin 11.2 GM/DL (11.6-15.3) Hematocrit 33.6 % (35.0-46.0) Mean Corpuscular Volume 78.7 FL (80.0-100.0) Mean Corpuscular Hemoglobin 26.2 PG (27.0-34.0) Platelet Count 129 TH/MM3 (150-450) Lymphocytes (%) (Auto) 49.3 % (9.0-44.0) Monocytes (%) (Auto) 17.9 % (0.0-8.0) Neutrophils # (Auto) 1.5 TH/MM3 (1.8-7.7) Random Glucose 126 MG/DL 145 MG/DL (74-106) (74-106) Calcium Level 8.3 MG/DL 7.8 MG/DL (8.5-10.1) (8.5-10.1) B-Type Natriuretic Peptide 296 PG/ML (0-100) Imaging Last Impressions Chest X-Ray 06/02/16 0000 Signed Impressions: Service Date/Time: Thursday, June 02, 2016 13:44 - CONCLUSION: Cardiomegaly with clear lungs. Javier Henderson MD Chest CT 05/30/16 0000 Signed Impressions: Service Date/Time: Tuesday, May 31, 2016 00:30 - CONCLUSION: Diffuse alveolar disease on the right characteristics of edema or pneumonia Aba Treviño MD PE at Discharge GENERAL: This is a well-nourished, well-developed patient, tachycardic at rest SKIN: No rashes, ecchymoses or lesions. Cool and dry. HEAD: Atraumatic. Normocephalic. No temporal or scalp tenderness. EYES:Extraocular motions intact. No scleral icterus. No injection or drainage. CARDIOVASCULAR: Regular rate and rhythm without murmurs, gallops, or rubs. RESPIRATORY: Clear to auscultation. Breath sounds equal bilaterally. No wheezes , rales, or rhonchi. GASTROINTESTINAL: Abdomen soft, non-tender, nondistended. No hepato-splenomegaly , or palpable masses. No guarding. MUSCULOSKELETAL: Extremities without clubbing, cyanosis, or edema. No joint tenderness, effusion, or edema noted. No calf tenderness. Negative Homans sign bilaterally. NEUROLOGICAL: Awake and alert. No focal deficits noted. Motor and sensory grossly within normal limits. Five out of 5 muscle strength in all muscle groups. Normal speech. Hospital Course This is a pleasant 35-year-old [place]inese female whose with a past medical history of obesity. Patient denies prior medical history. 2 weeks of cough now productive of yellow/green phlegm, N/V/D New onset CHF ECHO with low EF severe mitral regurgitation. Discussed with Dr Nguyen. Start CHF meds. Cardiomegaly CXR reviewed by myself as well as Dr. Bean reveals: Cardiomegaly and findings of vascular congestion without overt failure. Repeat CXR improved. BNP 797, repeat in 200s. Patient improved clinically. Patient received Lasix 20 mg IV given in emergency department Lasix 20 mg IV daily with potassium 10 meq Echocardiogram ordered reviewed and findings discussed with Dr Nguyen. Entresto [place] not covered at [place] , discussed with the case management. Will give lisinopril at [place], BB, aldactone. 2D ECHO - Left ventricle: The cavity size was severely dilated. Wall thickness was normal. Systolic function was severely reduced. The estimated ejection fraction was in the range of 25% to 30%. Diffuse hypokinesis. - Mitral valve: Severe regurgitation. - Tricuspid valve: Moderate-severe regurgitation. - Pulmonary arteries: PA peak pressure: 57mm Hg (S). Serial troponin negative, serial EKGs no ischemic changes Cardiology consultation, seen by Dr Nguyen appreciate recommendations. Pneumonia- failed outpatient therapy Productive cough Patient received Rocephin and azithromycin in emergency department Patient was on azithromycin by mouth as an outpatient with no improvement Will start Levaquin 750 mg IV daily Methylprednisone 125 mg given IV 1 in emergency department DuoNeb scheduled and when necessary CT of the chest reviewed diffuse alveolar disease on the right consistent with edema or pneumonia D dimmer elevated at 0.[address] with IV contrast 05/30/2016 unable to do CTA to rule out PE at this time clinical suspicion of PE is low- patient is ambulatory and there is no s/s DVT- will hold off on VQ scan at this time If PE becomes more of a concern possible CTA to rule out PE at a later date Possible sleep apnea Consult pulmonology History of thyroid dx. TSH is low and free T4 is elevated patient with hyperthyroidism. Start methimazole 5 mg po bid. Patient to follow up as OP with endocrinology. DVT prophylaxis with Lovenox Improving. Cleared by cardiology for dC to follow up as OP. Patient needs life vest at [place], discussed with the pase management, patient also aware of risks of not having vest at [place]. Patient doesn't have insurance Pt Condition on Discharge: Stable Discharge Disposition: Discharge Home Discharge Time: <= 30 minutes Discharge Instructions DIET: Follow Instructions for: Heart Healthy Diet Activities you can perform: Regular-No Restrictions Follow up Referrals: Cardiology - 1 Week with Roya Nguyen MD PCP Follow-up - 3-5 Days New Medications: Aspirin (Aspirin) 81 Mg Chew 81 MG CHEW DAILY Blood Clot Prevention #30 Ref 0 TAB Lisinopril (Lisinopril) 2.5 Mg Tab 2.5 MG PO DAILY #30 Ref 0 TAB Spironolactone (Aldactone) 25 Mg Tab 25 MG PO DAILY Blood Pressure Management #30 Ref 0 TAB Carvedilol (Coreg) 3.125 Mg Tab 3.125 MG PO Q12HR Blood Pressure Management #60 TAB Methimazole (Tapazole) 5 Mg Tab 5 MG PO Q12HR hyperthyroidism #60 TAB Continued Medications: Miscellaneous (No Current Meds) Misc Ref 0 Amy Walter MD Jun 03, 2016 10:52
[2016-06-03] MEDS ORDERED: FURO1TAB62 PO (10:54)
--- NOTE | 2016-06-03 10:55 | HHI.PR ---
Subjective Remarks Ambulating. Says she feel smuch better. no sob , palpitations. n/v/d/c. Feels comfortable to go home. Discussed improtantc for follow up. Patient needs life vest however doesn't have insurance CM is following. Patient aware if risks. Objective Vitals Vital Signs Date Time Temp Pulse Resp B/P Pulse Ox O2 Delivery O2 Flow Rate FiO2 06/03/16 08:00 96.0 99 18 98/69 98 06/03/16 04:00 97.6 89 16 97/65 95 06/03/16 03:43 84 06/03/16 00:00 96.4 95 16 102/63 97 06/02/16 21:44 Room Air 06/02/16 21:11 98.9 107 20 108/70 100 06/02/16 16:37 97.0 103 22 110/70 100 06/02/16 15:15 107 06/02/16 12:00 96.7 107 16 102/67 96 I/O 06/02/16 06/02/16 06/02/16 06/03/16 06/03/16 06/03/16 07:00 15:00 23:00 07:00 15:00 23:00 Intake Total 240 ml 480 ml 240 ml 240 ml 146 ml Balance 240 ml 480 ml 240 ml 240 ml 146 ml Intake Oral 240 ml 480 ml 240 ml 240 ml IV Total 146 ml # Voids 1 3 1 1 # Bowel Movements 0 0 0 0 1 Result Diagram: 06/01/16 0617 06/02/16 1423 Imaging Last Impressions Chest X-Ray 06/02/16 0000 Signed Impressions: Service Date/Time: Thursday, June 02, 2016 13:44 - CONCLUSION: Cardiomegaly with clear lungs. Javier Henderson MD Chest CT 05/30/16 0000 Signed Impressions: Service Date/Time: Tuesday, May 31, 2016 00:30 - CONCLUSION: Diffuse alveolar disease on the right characteristics of edema or pneumonia Aba Treviño MD Objective Remarks GENERAL: This is a well-nourished, well-developed patient, tachycardic at rest SKIN: No rashes, ecchymoses or lesions. Cool and dry. HEAD: Atraumatic. Normocephalic. No temporal or scalp tenderness. EYES:Extraocular motions intact. No scleral icterus. No injection or drainage. CARDIOVASCULAR: Regular rate and rhythm without murmurs, gallops, or rubs. RESPIRATORY: Clear to auscultation. Breath sounds equal bilaterally. No wheezes , rales, or rhonchi. GASTROINTESTINAL: Abdomen soft, non-tender, nondistended. No hepato-splenomegaly , or palpable masses. No guarding. MUSCULOSKELETAL: Extremities without clubbing, cyanosis, or edema. No joint tenderness, effusion, or edema noted. No calf tenderness. Negative Homans sign bilaterally. NEUROLOGICAL: Awake and alert. No focal deficits noted. Motor and sensory grossly within normal limits. Five out of 5 muscle strength in all muscle groups. Normal speech. Procedures 2D ECHO - Left ventricle: The cavity size was severely dilated. Wall thickness was normal. Systolic function was severely reduced. The estimated ejection fraction was in the range of 25% to 30%. Diffuse hypokinesis. - Mitral valve: Severe regurgitation. - Tricuspid valve: Moderate-severe regurgitation. - Pulmonary arteries: PA peak pressure: 57mm Hg (S). A/P Assessment and Plan This is a pleasant 35-year-old [place] female whose with a past medical history of obesity. Patient denies prior medical history. 2 weeks of cough now productive of yellow/green phlegm, N/V/D New onset CHF ECHO with low EF severe mitral regurgitation. Discussed with Dr Nguyen. Start CHF meds. Cardiomegaly CXR reviewed by myself as well as Dr. Bean reveals: Cardiomegaly and findings of vascular congestion without overt failure. Repeat CXR improved. BNP 797, repeat in 200s. Patient improved clinically. Patient received Lasix 20 mg IV given in emergency department Lasix 20 mg IV daily with potassium 10 meq Echocardiogram ordered reviewed and findings discussed with Dr Nguyen. 2D ECHO - Left ventricle: The cavity size was severely dilated. Wall thickness was normal. Systolic function was severely reduced. The estimated ejection fraction was in the range of 25% to 30%. Diffuse hypokinesis. - Mitral valve: Severe regurgitation. - Tricuspid valve: Moderate-severe regurgitation. - Pulmonary arteries: PA peak pressure: 57mm Hg (S). Serial troponin negative, serial EKGs no ischemic changes Cardiology consultation, seen by Dr Nguyen appreciate recommendations. Pneumonia- failed outpatient therapy Productive cough Patient received Rocephin and azithromycin in emergency department Patient was on azithromycin by mouth as an outpatient with no improvement Will start Levaquin 750 mg IV daily Methylprednisone 125 mg given IV 1 in emergency department DuoNeb scheduled and when necessary CT of the chest reviewed diffuse alveolar disease on the right consistent with edema or pneumonia D dimmer elevated at 0.[address] with IV contrast 05/30/2016 unable to do CTA to rule out PE at this time clinical suspicion of PE is low- patient is ambulatory and there is no s/s DVT- will hold off on VQ scan at this time If PE becomes more of a concern possible CTA to rule out PE at a later date Possible sleep apnea Consult pulmonology History of thyroid dx. TSH is low and free T4 is elevated patient with hyperthyroidism. Start methimazole 5 mg po bid. Patient to follow up as OP with endocrinology. DVT prophylaxis with Lovenox Improving. Cleared by cardiology for dC to follow up as OP. Patient needs life vest at [place], discussed with the pase management, patient also aware of risks of not having vest at [place]. Patient doesn't have insurance Amy Walter MD Jun 03, 2016 10:55
[2016-06-03 12:00] VITALS: BP 108/65; PULSE 100; RESP 18; TEMP 96.7; O2SAT 98
[2016-06-03] MEDS ORDERED: LISI2.5T3 PO (12:28)
== END 2016-06-03 15:26 | disposition home or self-care (01) | DRG 194 ==
LOC: NEPE 22:05 → NEDA 05-31 01:31 → N06B 05-31 03:57
PROVIDERS: ADMIT Hospitalist; ATTEND Hospitalist
PROC: B2111ZZ Fluoroscopy of Multiple Coronary Arteries using Low Osmolar Contrast (ICD-10-PCS; 2016-06-02)
PROC: B2151ZZ Fluoroscopy of Left Heart using Low Osmolar Contrast (ICD-10-PCS; 2016-06-02)
PROC: 4A023N7 Measurement of Cardiac Sampling and Pressure, Left Heart, Percutaneous Approach (ICD-10-PCS; principal; 2016-06-02 13:30)
DX: J18.9 Pneumonia, unspecified organism (principal); I50.20 Unspecified systolic (congestive) heart failure; I08.1 Rheumatic disorders of both mitral and tricuspid valves; E05.90 Thyrotoxicosis, unspecified without thyrotoxic crisis or storm; R11.2 Nausea with vomiting, unspecified; Z23 Encounter for immunization; R19.7 Diarrhea, unspecified; Z88.0 Allergy status to penicillin
CPT/HCPCS: 71010; 71260; 80048; 80076; 82550; 83880; 84439; 84443; 84484; 84702; 84703; 85025; 85379; 85652; 87040; 87804; 90471; 90686; 93005; 93306; 93458; 94640; 94664; 96374; 96375; C1769; C1893; G0008; J0696; J1644; J1650; J1940; J1956; J2250; J2930; J3010; J7613; Q2038; Q9967

== ENCOUNTER 2016-08-12 18:07 | Observation (INO) | payer OTHER ==
[~2016-08-12] VITALS: Ht 170.2 cm; Wt 82.0 kg
[~2016-08-12 18:07] MED LIST changes: +ASPI81CH CHEW; +CARV3.125 PO; +LISI2.5T3 PO; +METH5 PO; +SPIR25 PO
[2016-08-12 18:09] VITALS: BP 130/80; PULSE 106; RESP 16; TEMP 98.7; O2SAT 100
--- NOTE | 2016-08-12 18:23 | PD ---
Physical Exam Time Seen by Provider: 18:23 Narrative 35 y/o female presents for evaluation of sob, abdominal/chest "tightness" for two days. Dx CHF 2 months ago. vital signs reviewed. Seen at triage desk. Awaiting bed placement. Data Data Last Documented VS Vital Signs Date Time Temp Pulse Resp B/P Pulse Ox O2 Delivery O2 Flow Rate FiO2 08/12/16 18:09 98.7 106 16 130/80 100 MDM Medical Record Reviewed: Yes Supervised Visit with KIMBERLEY: Julian Hdez August 12, 2016 18:23
[2016-08-12] MEDS ORDERED: ASPIRIN 81 MG CHEW TAB PO ONE (20:45)
[2016-08-12] MEDS ORDERED: SODIUM CHLORIDE 0.9% FLUSH 10 ML FLUSH IVF PRN (20:45)
--- NOTE | 2016-08-12 20:56 | PD ---
HPI Chief Complaint: Chest Pain Time Seen by Provider: 20:53 Travel History International Travel<30 days: No Contact w/Intl Traveler<30days: No Traveled to known affect area: No History of Present Illness HPI Patient comes in complaining of chest pressure and shortness of breath began 2 days ago. Patient states she was seen emergency department in May diagnosis was CHF, pneumonia, and hyperthyroidism. Patient states symptoms feel different previous symptoms in May. Patient states she's been out of her medications for approximately 3 weeks and just got back yesterday. Patient states she took her diuretic yesterday seemed to help her symptoms some comp continues to have discomfort. Patient also reports vomiting 2 episodes 4 days ago and one today. Along with nonbloody diarrhea. Patient reports she is on her menstrual cycle. Denies any abdominal pain. Reports chest pressure substernal just above her epigastric area. Denies any radiation of the pain, fevers, headaches, or numbness or tingling anywhere. Patient reports worsening dyspnea on exertion. PFSH Past Medical History Cancer: No Cardiovascular Problems: No Congestive Heart Failure: Yes Diabetes: No Diminished Hearing: No Glaucoma: No Hepatitis: No Hiatal Hernia: No Hypertension: Yes Musculoskeletal: No Neurologic: No Psychiatric: No Respiratory: No Immunizations Current: No Thyroid Disease: Yes (hyperthyroid) ?: Not LMP: 08/12/16 : 1 Para: 0 Miscarriage: 1 Past Surgical History Abdominal Surgery: No Cardiac Surgery: No Ear Surgery: No Endocrine Surgery: No Eye Surgery: No Genitourinary Surgery: No Gynecologic Surgery: Yes (D&C 2008 S/P MISCARRIAGE) Oral Surgery: No Pacemaker: No Thoracic Surgery: No Social History Alcohol Use: No Tobacco Use: No Substance Use: No Allergies-Medications (Allergen,Severity, Reaction): Coded Allergies: Penicillin (Verified Allergy, Mild, UNKNOWN, 08/12/16) Reported Meds & Prescriptions Reported Meds & Active Scripts Active Lisinopril 2.5 Mg Tab 2.5 Mg PO DAILY Aspirin 81 Mg Chew 81 Mg CHEW DAILY Aldactone (Spironolactone) 25 Mg Tab 25 Mg PO DAILY Tapazole (Methimazole) 5 Mg Tab 5 Mg PO Q12HR Coreg (Carvedilol) 3.125 Mg Tab 3.125 Mg PO Q12HR Review of Systems Except as stated in HPI: all other systems reviewed are Neg Physical Exam Narrative GENERAL: Well-developed, overly nourished, in no acute distress, and non-ill appearing. SKIN: Focused skin assessment warm and dry. HEAD: Atraumatic. Normocephalic. EYES: Pupils equal and round. EOMI. No scleral icterus. No injection or drainage. ENT: No nasal bleeding or discharge. Mucous membranes pink and moist. NECK: Trachea midline. Supple. No nuclear rigidity. CARDIOVASCULAR: Regular rate and rhythm. No murmur appreciated. RESPIRATORY: No accessory muscle use. No respiratory distress. Decreased breath sounds throughout. Breath sounds equal bilaterally. GASTROINTESTINAL: Abdomen soft, non-tender, nondistended. Hepatic and splenic margins not palpable. Normal bowel sounds 4. No pulsatile mass. MUSCULOSKELETAL: No obvious deformities. No clubbing. No cyanosis. 1+ pitting edema bilateral lower extremities. Full range of motion. NEUROLOGICAL: Awake and alert. No obvious cranial nerve deficits. Motor grossly within normal limits. Normal speech. PSYCHIATRIC: Appropriate mood and affect; insight and judgment normal. Data Data Last Documented VS Vital Signs Date Time Temp Pulse Resp B/P Pulse Ox O2 Delivery O2 Flow Rate FiO2 08/12/16 21:05 99 08/12/16 18:09 98.7 106 16 130/80 Orders Electrocardiogram (08/12/16 ) Complete Blood Count With Diff (08/12/16 20:42) Comprehensive Metabolic Panel (08/12/16 20:42) B-Type Natriuretic Peptide (08/12/16 20:42) Act Partial Throm Time (Ptt) (08/12/16 20:42) Prothrombin Time / Inr (Pt) (08/12/16 20:42) Magnesium (Mg) (08/12/16 20:42) Ckmb (Isoenzyme) Profile (08/12/16 20:42) Troponin I (08/12/16 20:42) Iv Access Insert/Monitor (08/12/16 20:42) Ecg Monitoring (08/12/16 20:42) Oximetry (08/12/16 20:42) Oxygen Administration (08/12/16 20:42) Chest, Single Ap (08/12/16 20:42) Sodium Chloride 0.9% Flush (Ns Flush) (08/12/16 20:45) Thyroid Stimulating Hormone (08/12/16 20:42) Lipase (08/12/16 20:44) Aspirin Chew (Aspirin Chew) (08/12/16 20:45) Furosemide Inj (Lasix Inj) (08/12/16 22:45) Admit Order (Ed Use Only) (08/12/16 22:41) Labs Laboratory Tests Test 08/12/16 20:45 White Blood Count 5.1 TH/MM3 Red Blood Count 4.67 MIL/MM3 Hemoglobin 12.8 GM/DL Hematocrit 38.1 % Mean Corpuscular Volume 81.4 FL Mean Corpuscular Hemoglobin 27.4 PG Mean Corpuscular Hemoglobin 33.6 % Concent Red Cell Distribution Width 17.2 % Platelet Count 191 TH/MM3 Mean Platelet Volume 8.8 FL Neutrophils (%) (Auto) 50.4 % Lymphocytes (%) (Auto) 37.0 % Monocytes (%) (Auto) 11.7 % Eosinophils (%) (Auto) 0.5 % Basophils (%) (Auto) 0.4 % Neutrophils # (Auto) 2.6 TH/MM3 Lymphocytes # (Auto) 1.9 TH/MM3 Monocytes # (Auto) 0.6 TH/MM3 Eosinophils # (Auto) 0.0 TH/MM3 Basophils # (Auto) 0.0 TH/MM3 CBC Comment DIFF FINAL Differential Comment Prothrombin Time 14.1 SEC Prothromb Time International 1.3 RATIO Ratio Activated Partial 25.9 SEC Thromboplast Time Sodium Level 139 MEQ/L Potassium Level 4.3 MEQ/L Chloride Level 107 MEQ/L Carbon Dioxide Level 22.8 MEQ/L Anion Gap 9 MEQ/L Blood Urea Nitrogen 13 MG/DL Creatinine 0.61 MG/DL Estimat Glomerular Filtration 134 ML/MIN Rate Random Glucose 113 MG/DL Calcium Level 8.4 MG/DL Magnesium Level 1.9 MG/DL Total Bilirubin 0.8 MG/DL Aspartate Amino Transf 27 U/L (AST/SGOT) Alanine Aminotransferase 26 U/L (ALT/SGPT) Alkaline Phosphatase 204 U/L Total Creatine Kinase 89 U/L Troponin I LESS THAN 0.02 NG/ML B-Type Natriuretic Peptide 938 PG/ML Total Protein 7.0 GM/DL Albumin 3.1 GM/DL Thyroid Stimulating Hormone LESS THAN 3rd Gen 0.005 uIU/ML MDM Medical Decision Making Medical Screen Exam Complete: Yes Emergency Medical Condition: Yes Interpretation(s) EKG reviewed by Dr. Briceno shows sinus rhythm with ventricular rate 97. No STEMI. Differential Diagnosis Acute coronary syndrome, angina, CHF exacerbation, pneumonia, medical noncompliance, electrolyte abnormality, Narrative Course Patient was seen and examined. Initial laboratory radiologic studies were obtained and reviewed. Patient was given aspirin along with IV Lasix [address] mg. Discuss[address] patient with Dr. Briceno, who is agreeable with plan of care and recommend having patient admitted to medicine. Discussed all findings and plan of care with patient, who is agreeable for admission. All questions were answered. Patient remains stable throughout ED course. Physician Communication Physician Communication [id number] Umaña, who is agreeable to admit the patient for Dr. Joiner. Diagnosis Primary Impression: Chest pain Qualified Code: R07.9 - Chest pain, unspecified type Additional Impressions: Dyspnea Qualified Code: R06.00 - Dyspnea, unspecified type Hyperthyroidism CHF (congestive heart failure) Qualified Code: I50.9 - Chronic congestive heart failure, unspecified congestive heart failure type Admitting Information Admitting Physician Requests: Observation Condition: Stable Case Chauhan August 12, 2016 20:55
[2016-08-12 21:11] LABS: AUTOMATED NEUTROPHIL # 2.6 TH/MM3 (1.8-7.7); BASOPHIL % 0.4 % (0.0-2.0); EOSINOPHIL % 0.5 % (0.0-4.0); HEMATOCRIT 38.1 % (35.0-46.0); HEMO FLAGS DIFF FINAL; LYMPHOCYTE # 1.9 TH/MM3 (1.0-4.8); MEAN CELL VOLUME 81.4 FL (80.0-100.0); MEAN CORPUSCULAR HEMOGLOBIN 27.4 PG (27.0-34.0); MEAN CORPUSCULAR HGB CONC 33.6 % (32.0-36.0); MONO % 11.7 % (0.0-8.0); NEUT % 50.4 % (16.0-70.0); PLATELET COUNT 191 TH/MM3 (150-450); RED BLOOD COUNT 4.67 MIL/MM3 (4.00-5.30); RED CELL DISTRIBUTION WIDTH 17.2 % (11.6-17.2); WHITE BLOOD COUNT 5.1 TH/MM3 (4.0-11.0)
--- NOTE | 2016-08-12 21:16 | RADRPT ---
EXAM DATE/TIME: 08/12/2016 20:44 [facility] COMPARISON: CHEST SINGLE AP, June 02, 2016, 13:44. INDICATIONS : Shortness of breath and chest pain. MEDICAL HISTORY : Congestive heart failure. SURGICAL HISTORY : None. ENCOUNTER: Initial ACUITY: 2 days PAIN SCORE: 4/10 LOCATION: chest FINDINGS: A single view of the chest demonstrates the lungs to be symmetrically aerated without evidence of mas s, infiltrate or effusion. The cardiomediastinal contours are unremarkable. Osseous structures are intact. CONCLUSION: No acute disease. Mihai Hylton MD on August 12, 2016 at 21:13 Board Certified Radiologist. This report was verified electronically.
[2016-08-12 21:27] LABS: APTT (PATIENT) 25.9 SEC (24.3-30.1); INTERNATIONAL NORMALIZED RATIO 1.3 RATIO; PROTHROMBIN TIME - PATIENT 14.1 SEC (9.8-11.6)
[2016-08-12 22:05] LABS: ANION GAP 9 MEQ/L (5-15); AST (GOT) 27 U/L (15-37); BICARBONATE 22.8 MEQ/L (21.0-32.0); BLOOD UREA NITROGEN 13 MG/DL (7-18); CHLORIDE 107 MEQ/L (98-107); GLOMERULAR FILTRATION RATE 134 ML/MIN (>89); MAGNESIUM 1.9 MG/DL (1.5-2.5); POTASSIUM 4.3 MEQ/L (3.5-5.1); SODIUM (NA) 139 MEQ/L (136-145)
[2016-08-12 22:17] LABS: ALKALINE PHOSPHATASE 204 U/L (45-117); ALT (GPT) 26 U/L (10-53); TOTAL BILIRUBIN ADULT 0.8 MG/DL (0.2-1.0)
[2016-08-12 22:25] LABS: CREATINE KINASE 89 U/L (26-192)
[2016-08-12] MEDS ORDERED: FUROSEMIDE 40 MG/4 ML VIAL IV PUSH ONE (22:45)
[2016-08-13] VITALS (7 sets, daily range): BP systolic 114–138; BP diastolic 69–89; PULSE 96–105; RESP 16–18; TEMP 95.8–97.6; O2SAT 95–97
[2016-08-13] MEDS ORDERED: ONDANSETRON HCL 4 MG/2 ML VIAL IVP PRN (00:15)
[2016-08-13] MEDS ORDERED: SODIUM CHLORIDE 0.9% FLUSH 10 ML FLUSH IV FLUSH PRN (00:15)
[2016-08-13] MEDS ORDERED: NALOXONE HCL 0.4 MG/ML AMP IV PRN (00:15)
[2016-08-13] MEDS ORDERED: MORPHINE SULFATE 4 MG/ML INJ IV PRN (00:15)
--- NOTE | 2016-08-13 00:29 | HHI.HP ---
HPI Service [facility] Hospitalists Primary Care Physician Non-Staff Admission Diagnosis chest pain, dyspnea, hyperthyroidism, CHF Chief Complaint: chest pain ,shortness of breath some edema for 2 days Travel History International Travel<30 Days: No Contact w/Intl Traveler <30 Da: No Traveled to Known Affected Are: No History of Present Illness Patient comes in complaining of chest pressure and shortness of breath began 2 days ago. Patient states she was seen emergency department in May diagnosis was CHF, pneumonia, and hyperthyroidism. Patient states symptoms feel different previous symptoms in May. Patient states she's been out of her medications for approximately 3 weeks and just got back yesterday. Patient states she took her diuretic yesterday seemed to help her symptoms a little and still felt some SOB with chest discomfort and came to ER. Patient also reports vomiting 2 episodes 4 days ago and one today. Along with nonbloody diarrhea. Patient reports she is on her menstrual cycle. Denies any abdominal pain. Reports chest pressure substernal just above her epigastric area. Denies any radiation of the pain, fevers, headaches, or numbness or tingling anywhere. Patient reports worsening dyspnea on exertion. Patient was in process of changing to [facility] and just got in on Wednesday and had no medications for over 2 weeks. In er found to be in some CHF and hyperthyroid as was not on her hyperthyroid medication. Review of Systems Respiratory: COMPLAINS OF: Shortness of breath Cardiovascular: COMPLAINS OF: Chest pain Past Family Social History Past Medical History pneumonia ,hyperthyroid,chf, Past Surgical History d/c Reported Medications lisinopril 2.5 asa 81,aldactone 25,tapazole 5 q 12,coreg 3.125bid Allergies: Coded Allergies: Penicillin (Verified Allergy, Mild, UNKNOWN, 08/12/16) Social History NS,ND Physical Exam Vital Signs Vital Signs Date Time Temp Pulse Resp B/P Pulse Ox O2 Delivery O2 Flow Rate FiO2 08/12/16 21:05 99 08/12/16 18:09 98.7 106 16 130/80 100 Physical Exam GENERAL: This is a well-nourished, well-developed patient, in no apparent distress. SKIN: No rashes, ecchymoses or lesions. Cool and dry. HEAD: Atraumatic. Normocephalic. No temporal or scalp tenderness. EYES: Pupils equal round and reactive. Extraocular motions intact. No scleral icterus. No injection or drainage. ENT: Nose without bleeding, purulent drainage or septal hematoma. Throat without erythema, tonsillar hypertrophy or exudate. Uvula midline. Airway patent. NECK: Trachea midline. No JVD or lymphadenopathy. Supple, nontender, no meningeal signs. CARDIOVASCULAR: Regular rate and rhythm without murmurs, gallops, or rubs. RESPIRATORY: Clear to auscultation. Breath sounds equal bilaterally. No wheezes , rales, or rhonchi. GASTROINTESTINAL: Abdomen soft, non-tender, nondistended. No hepato-splenomegaly , or palpable masses. No guarding. MUSCULOSKELETAL: Extremities without clubbing, cyanosis, trace edema. No joint tenderness, effusion, or edema noted. No calf tenderness. Negative Homans sign bilaterally. NEUROLOGICAL: Awake and alert. Cranial nerves II through XII intact. Motor and sensory grossly within normal limits. Five out of 5 muscle strength in all muscle groups. Normal speech. Laboratory Laboratory Tests Test 08/12/16 20:45 White Blood Count 5.1 Red Blood Count 4.67 Hemoglobin 12.8 Hematocrit 38.1 Mean Corpuscular Volume 81.4 Mean Corpuscular Hemoglobin 27.4 Mean Corpuscular Hemoglobin 33.6 Concent Red Cell Distribution Width 17.2 Platelet Count 191 Mean Platelet Volume 8.8 Neutrophils (%) (Auto) 50.4 Lymphocytes (%) (Auto) 37.0 Monocytes (%) (Auto) 11.7 Eosinophils (%) (Auto) 0.5 Basophils (%) (Auto) 0.4 Neutrophils # (Auto) 2.6 Lymphocytes # (Auto) 1.9 Monocytes # (Auto) 0.6 Eosinophils # (Auto) 0.0 Basophils # (Auto) 0.0 CBC Comment DIFF FINAL Differential Comment Prothrombin Time 14.1 Prothromb Time International 1.3 Ratio Activated Partial 25.9 Thromboplast Time Sodium Level 139 Potassium Level 4.3 Chloride Level 107 Carbon Dioxide Level 22.8 Anion Gap 9 Blood Urea Nitrogen 13 Creatinine 0.61 Estimat Glomerular Filtration 134 Rate Random Glucose 113 Calcium Level 8.4 Magnesium Level 1.9 Total Bilirubin 0.8 Aspartate Amino Transf 27 (AST/SGOT) Alanine Aminotransferase 26 (ALT/SGPT) Alkaline Phosphatase 204 Total Creatine Kinase 89 Troponin I LESS THAN 0.02 B-Type Natriuretic Peptide 938 Total Protein 7.0 Albumin 3.1 Thyroid Stimulating Hormone LESS THAN 3rd Gen 0.005 Result Diagram: 08/12/16204408/12/162044 Imaging Last 24 hours Impressions Chest X-Ray 08/12/162041 Signed Impressions: Service Date/Time: Friday, August 12, 2016 20:44 - CONCLUSION: No acute disease. Mihai Hylton MD Course in er given IV lasix 40mg Assessment and Plan Problem List: (1) Chest pain Status: Acute Plan: chest pain more related to some fluid overload and related to hyperthyroid doubt cardiac will obtain enzymes and repeat ekg ,patient did receive lasix and has been doing well (2) CHF (congestive heart failure) Status: Acute Plan: related to no medications for 2-3 weeks restart meds note has ef around 30% will give additional lasix 20mg in am and follow up bnp (3) Hyperthyroidism Status: Acute Plan: restart tapazole Assessment and Plan further plan as case develops Code Status full Discussed Condition With patient Problem Qualifiers (1) Chest pain: Qualified Code: R07.9 - Chest pain, unspecified type (2) CHF (congestive heart failure): Qualified Code: I50.9 - Chronic congestive heart failure, unspecified congestive heart failure type Mic Umaña MD August 13, 2016 00:29
[2016-08-13] MEDS ORDERED: NITROGLYCERIN 0.4 MG SL 25 TABS/BTL SL PRN (00:30)
[2016-08-13] MEDS ORDERED: ACETAMINOPHEN 325 MG TAB PO PRN (00:45)
[2016-08-13] MEDS ORDERED: TEMAZEPAM 15 MG CAP PO PRN (00:45)
[2016-08-13 07:41] LABS: ANION GAP 7 MEQ/L (5-15); BICARBONATE 23.9 MEQ/L (21.0-32.0); BLOOD UREA NITROGEN 12 MG/DL (7-18); CHLORIDE 110 MEQ/L (98-107); GLOMERULAR FILTRATION RATE 139 ML/MIN (>89); SODIUM (NA) 141 MEQ/L (136-145)
[2016-08-13] MEDS ORDERED: LISINOPRIL 5 MG TAB PO SCH (09:00)
[2016-08-13] MEDS ORDERED: SODIUM CHLORIDE 0.9% FLUSH 10 ML FLUSH IV FLUSH SCH (09:00)
[2016-08-13] MEDS ORDERED: SPIRONOLACTONE 25 MG TAB PO SCH (09:00)
[2016-08-13] MEDS ORDERED: CARVEDILOL 3.125 MG TAB PO SCH (09:00)
[2016-08-13] MEDS ORDERED: METHIMAZOLE 5 MG TAB PO SCH (09:00)
[2016-08-13] MEDS ORDERED: ASPIRIN 81 MG CHEW TAB CHEW SCH (09:00)
[2016-08-13] MEDS ORDERED: FUROSEMIDE 20 MG/2 ML VIAL IV PUSH SCH (09:00)
--- NOTE | 2016-08-13 11:29 | HHI.PR ---
Subjective Remarks Pt feels that overall she is feeling better today She had been having increased SOB and chest fullness sensation for about 5 days prior to admission Pt had been out of all of her cardiac medications for about 3 weeks until just this past Wednesday. Her [facility] insurance just started a few days ago and Dr. Nguyen called in her cardiac meds for her but she has still been out of her methimazole. Pt was given IV Lasix in the ED and is symptomatically feeling much better. She states that she had not been having much swelling in the feet or ankles. She did have some vomiting a few days ago and again last night in the ED but this has occurred episodically. No noted hematemesis or coffee-ground emesis. Pt does have a life vest at home and states that she does wear it but not all the time. Objective Vitals Vital Signs Date Time Temp Pulse Resp B/P Pulse Ox O2 Delivery O2 Flow Rate FiO2 08/13/16 07:41 97.6 102 16 114/74 96 08/13/16 04:12 96.7 105 18 117/74 95 08/13/16 02:00 103 08/13/16 01:19 95.8 105 18 121/83 96 08/12/16 21:05 99 08/12/16 18:09 98.7 106 16 130/80 100 Result Diagram: 08/12/16204408/13/16 0632 Other Results Laboratory Tests Test 08/12/16 08/13/16 20:45 06:32 Prothrombin Time 14.1 SEC Prothromb Time International 1.3 RATIO Ratio Activated Partial 25.9 SEC Thromboplast Time B-Type Natriuretic Peptide 938 PG/ML 979 PG/ML White Blood Count 5.1 TH/MM3 Red Blood Count 4.67 MIL/MM3 Hemoglobin 12.8 GM/DL Hematocrit 38.1 % Mean Corpuscular Volume 81.4 FL Mean Corpuscular Hemoglobin 27.4 PG Mean Corpuscular Hemoglobin 33.6 % Concent Red Cell Distribution Width 17.2 % Platelet Count 191 TH/MM3 Mean Platelet Volume 8.8 FL Neutrophils (%) (Auto) 50.4 % Lymphocytes (%) (Auto) 37.0 % Monocytes (%) (Auto) 11.7 % Eosinophils (%) (Auto) 0.5 % Basophils (%) (Auto) 0.4 % Neutrophils # (Auto) 2.6 TH/MM3 Lymphocytes # (Auto) 1.9 TH/MM3 Monocytes # (Auto) 0.6 TH/MM3 Eosinophils # (Auto) 0.0 TH/MM3 Basophils # (Auto) 0.0 TH/MM3 CBC Comment DIFF FINAL Differential Comment Sodium Level 139 MEQ/L 141 MEQ/L Potassium Level 4.3 MEQ/L 4.0 MEQ/L Chloride Level 107 MEQ/L 110 MEQ/L Carbon Dioxide Level 22.8 MEQ/L 23.9 MEQ/L Anion Gap 9 MEQ/L 7 MEQ/L Blood Urea Nitrogen 13 MG/DL 12 MG/DL Creatinine 0.61 MG/DL 0.59 MG/DL Estimat Glomerular Filtration 134 ML/MIN 139 ML/MIN Rate Random Glucose 113 MG/DL 97 MG/DL Calcium Level 8.4 MG/DL 8.3 MG/DL Magnesium Level 1.9 MG/DL Total Bilirubin 0.8 MG/DL Aspartate Amino Transf 27 U/L (AST/SGOT) Alanine Aminotransferase 26 U/L (ALT/SGPT) Alkaline Phosphatase 204 U/L Total Creatine Kinase 89 U/L Troponin I LESS THAN 0.02 LESS THAN 0.02 NG/ML NG/ML Total Protein 7.0 GM/DL Albumin 3.1 GM/DL Lipase 49 U/L Thyroid Stimulating Hormone LESS THAN 3rd Gen 0.005 uIU/ML Imaging Last 24 hours Impressions Chest X-Ray 08/12/162041 Signed Impressions: Service Date/Time: Friday, August 12, 2016 20:44 - CONCLUSION: No acute disease. Mihai Hylton MD Objective Remarks General: NAD, AAOx3 Chest: CTA Cardiac: Regular Abd: +BS, soft ND/NT Ext: No edema A/P Problem List: (1) Chest pain Status: Acute Plan: - Pt admitted with SOB with exertion and some lower chest/epigastric type pain - Pt had a previous hospitalization in 05/2016 and she was diagnosed with nonischemic cardiomyopathy with EF 25% and was started on Lisinopril, Coreg, ASA, and Aldactone. She was also diagnosed with hyperthyroidism and was started on Methimazole. - 2D echo (06/01/16) --> LV severely dilated, EF 25% to 30%, diffuse hypokinesis , severe mitral regurgitation, moderate-severe tricuspid regurgitation, PA peak pressure, 57mmHg. - Pt was provided a Life Vest from Dr. Nguyen's office but she is not wearing it all the time. - Pt ran out of her medications 3 weeks ago but just started on [facility] and was able to get her Lisinopril, Coreg, and Aldactone prescribed back about 3 days ago. She has not been back on the Methimazole. - Pts BNP at admission was 938. She was given IV Lasix in the ED with clinical improvement. She was resumed on her LUIS/BB/Aldactone and was continued on Lasix 20mg IV for today. - It was felt that her symptoms at admission were more likely related to some fluid overload and related to hyperthyroid - Her CE have been negative. - CTA was negative for PE - She has a FU appt scheduled with her assigned [facility] PCP, Dr. Nunez, for Wednesday next week. - Monitor labs - Pt is to wear her life vest - Telemetry - DVT prophylaxis with SCDs (2) CHF (congestive heart failure) Status: Acute Plan: - See above. (3) Hyperthyroidism Status: Acute Plan: - Cont. Methimazole Assessment and Plan Patient examined. Assessment and plan formulated with Miranda Mejia PA-C. I agree with the above. pt dx with non ischemic CM in 05/29. ran out of meds and then received insurance. has life vest but partially compliants resumed some meds a few days ago but was more sob with exertion. so far doing better today will ambulate around the unit and plan for d/c later today vs in AM f/u new pcp Wednesday for sleep study referral, endocrine referral, cardiology referral, etc. Problem Qualifiers (1) Chest pain: Qualified Code: R07.9 - Chest pain, unspecified type (2) CHF (congestive heart failure): Qualified Code: I50.9 - Chronic congestive heart failure, unspecified congestive heart failure type Miranda Mejia August 13, 2016 11:29 Farhan Morris MD August 13, 2016 15:24
[2016-08-13] MEDS ORDERED: SPIR25 PO (15:26)
[2016-08-13] MEDS ORDERED: METH5 PO (15:26)
[2016-08-13] MEDS ORDERED: CARV3.125 PO (15:26)
[2016-08-13] MEDS ORDERED: LISI2.5T3 PO (15:26)
--- NOTE | 2016-08-13 15:26 | HHI.DCPOC ---
Discharge Care Plan Diagnosis: (1) CHF (congestive heart failure) (2) Hyperthyroidism (3) Mitral regurgitation Goals to Promote Your Health * To prevent worsening of your condition and complications * To maintain your health at the optimal level Directions to Meet Your Goals Take your medications as prescribed Follow your dietary instruction Follow activity as directed Keep your appointments as scheduled Take your immunizations and boosters as scheduled If your symptoms worsen call your PCP, if no PCP go to Urgent Care Center or Emergency Room Smoking is Dangerous to Your Health. Avoid second hand smoke Call the 24-hour hour crisis hotline for domestic abuse at Farhan Morris MD August 13, 2016 15:26
--- NOTE | 2016-08-13 18:32 | EKG ---
Date Performed: 08/13/2016 Time Performed: 06:17:46 PTAGE: 35 years EKG: SINUS TACHYCARDIA WITH OCCASIONAL VENTRICULAR PREMATURE COMPLEXES POSSIBLE LEFT ATRIAL ENLA RGEMENT INFERIOR MYOCARDIAL INFARCTION ANTEROSEPTAL MYOCARDIAL INFARCTION ABNORMAL ECG Compared to pr ior tracing no significant change PREVIOUS TRACING : 08/12/2016 18.33 DOCTOR: Aba Marcelo Interpretating Date/Time 08/13/2016 18:29:59
--- NOTE | 2016-08-13 18:33 | EKG ---
Date Performed: 08/12/2016 Time Performed: 18:33:11 PTAGE: 35 years EKG: Sinus rhythm WITH FREQUENT VENTRICULAR PREMATURE COMPLEXES POSSIBLE LEFT ATRIAL ENLARGEMENT LOW QRS VOLTAGE IN MN ECORDIAL LEADS ABNORMAL RHYTHM ECG INTERPRETATION BASED ON A DEFAULT AGE OF 40 YEARS Compared to prio r tracing no significant change PREVIOUS TRACING : 06/01/2016 05.27 DOCTOR: Aba Marcelo Interpretating Date/Time 08/13/2016 18:30:06
== END 2016-08-13 19:52 | disposition home or self-care (01) ==
LOC: NEPC 18:07 → NEDA 22:43 → NEPFCDU 08-13 01:15
PROVIDERS: ADMIT Hospitalist; ATTEND Hospitalist
DX: R07.89 Other chest pain (principal); E05.90 Thyrotoxicosis, unspecified without thyrotoxic crisis or storm; I11.0 Hypertensive heart disease with heart failure; I50.9 Heart failure, unspecified; I42.9 Cardiomyopathy, unspecified; Z87.01 Personal history of pneumonia (recurrent); Z88.0 Allergy status to penicillin
CPT/HCPCS: 71010; 80048; 80053; 82550; 83690; 83735; 83880; 84443; 84484; 85025; 85610; 85730; 93005; 99285; G0378; J1940

== ENCOUNTER 2017-10-11 08:39 | Observation (INO) ==
[2017-10-13 10:48] VITALS: RESP 20
[2017-10-13 13:26] VITALS: BP 106/57; PULSE 60; TEMP 97.8; O2SAT 98
== END 2017-10-13 15:13 | disposition home or self-care (01) ==
LOC: NEDA 08:39 → N04 08:39 → NEPC 08:39 → N04 14:10
PROVIDERS: ADMIT Family Medicine; ATTEND Family Medicine